=== PATIENT | male | born 1980 | race Two or more races ===

== ENCOUNTER 2023-03-25 19:45 | Emergency (ER) | payer OTHER, SELFPAY ==
--- NOTE | ~2023-03-25 | XR_ITS ---
EXAMINATION: XR CHEST CLINICAL INFORMATION: Hypertension COMPARISON: None available. TECHNIQUE: 2 views of the chest were obtained. FINDINGS: The cardiac and mediastinal contours are normal. The lungs are clear. No pleural effusion or pneumothorax. Bony structures are unremarkable. There are multiple small 2 mm radiopaque soft tissue foreign bodies projecting over the right chest and one projecting over the left chest. XR/XR chest 2V IMPRESSION: Multiple radiopaque foreign bodies over the chest, right greater than left. Otherwise unremarkable exam.
[2023-03-25 19:51] VITALS: BP 168/102; PULSE 98; RESP 18; TEMP 36.6; O2SAT 99; BMI 33.9
--- NOTE | 2023-03-25 19:51 | ED.GENADULT ---
HPI - General Adult General Chief complaint: Upper Respiratory Symptoms Stated complaint: High blood pressure Time Seen by Provider: 03/26/23 00:46 Source: patient Mode of arrival: ambulatory Limitations: no limitations History of Present Illness HPI narrative: Patient with no known significant past medical history has some cold symptoms for last 1 week and dry cough noticed to have high blood pressure on arrival patient has not seen PCP for long time has strong family history of hypertension on arrival patient's blood pressure was 168/102 has not taken any Sudafed or has any coffee prior to arrival no chest pain or shortness of breath Related Data Previous Rx's Medication Instructions Recorded lisinopril 20 1 tab PO DAILY #90 tabs 03/26/23 mg-hydrochlorothiazide 12.5 mg tablet Allergies Allergy/AdvReac Type Severity Reaction Status Date / Time No Known Allergies Allergy Verified 03/25/23 19:53 Review of Systems Review of Systems: Yes all other systems are reviewed and are negative Physical Exam ED Vital Signs: Vital Signs - 24 hr 03/25/23 19:51 03/26/23 01:08 03/26/23 02:52 Temperature 97.8 F 98.1 F 97.8 F Pulse Rate 98 81 84 Respiratory Rate 18 16 16 Blood Pressure 168/102 H 155/91 H 159/88 H Pulse Oximetry 99 98 96 Oxygen Delivery Method Room Air Room Air Room Air BMI result Body Mass Index 33.9 Appearance: Alert. Oriented X3. No acute distress. Obese Eyes: PERRLA, No Nystagmus ENT: Pharynx normal. Oral Mucosa moist Neck: Normal inspection. Neck supple. CVS: Normal heart rate and rhythm. Pulses normal. Respiratory: No respiratory distress. Equal air entry bilateral, no wheezing/rales/rhonchi Abdomen: Soft and nontender. Bowel sounds are present, no mass palpable, no CVA tenderness Skin: Skin warm and dry. Normal skin color. Normal skin turgor. Extremities: No lower extremity edema. No calf tenderness Neuro: Oriented X 3. No motor deficit. No sensory deficit.No cerebellar signs , cranial nerves II-XII intact Course Course Course Narrative: This is a rapid medical exam. Defer additional HPI, ROS, PE to primary provider. 42 yo male with no known medical history here with complaints of high blood pressure noted at . C/o intermittent headache, chest pain. Also complaining of some intermittent fevers, chills, sinus pressure and pain BP 168/102 in triage Medications Administered Discontinued Medications Generic Name Dose Route Start Last Admin Trade Name Jose M PRN Reason Stop Dose Admin Lisinopril 20 mg 03/26/23 01:10 03/26/23 01:37 Lisinopril 20 Mg Tablet PO 03/26/23 01:11 20 mg ONCE ONE Administration Protocol Medical Decision Making Medical Decision Making [facility] Narrative: Patient with hypertension with poor follow-up as outpatient discharge patient home on lisinopril hydrochlorothiazide for hypertension labs are stable advised to follow with PCP Lab Data [facility] Lab Attestation statement: I reviewed the patient's lab results. 03/25/23 21:06 03/25/23 21:06 Labs: Lab Results 03/25/23 03/25/23 03/25/23 Range/Units 21:03 21:06 21:06 WBC 11.4 H (4.8-10.8) X10*3/uL RBC 4.74 (4.60-5.80) X10*6/uL Hgb 14.0 (14.0-18.0) g/dl Hct 41.5 L (42.0-52.0) % MCV 87.6 (80.0-98.0) fL MCH 29.5 (27.0-33.0) pg MCHC 33.7 (31.0-36.0) g/dl RDW 13.0 (11.0-16.0) % Plt Count 293 (160-400) X10*3/uL MPV 8.6 L (9.4-12.4) fL Immature Gran % (Auto) 0.7 H (0.0-0.4) % Neut % (Auto) 57.5 (45-73) % Lymph % (Auto) 30.8 (20-40) % Carver % (Auto) 5.3 (2-11) % Eos % (Auto) 5.4 H (0-4) % Baso % (Auto) 0.3 (0-2) % Lymph # (Auto) 3.5 (1.2-4.9) X10*3/uL Carver # (Auto) 0.6 (0.1-1.2) X10*3/uL Eos # (Auto) 0.6 H (0.0-0.4) X10*3/uL Baso # (Auto) 0.0 (0.0-0.2) X10*3/uL Abs Immat Gran (auto) 0.08 H (0.00-0.03) X10*3/uL Absolute Neuts (auto) 6.6 (2.0-8.3) x10*3/uL Absolute Nucleated RBC 0.000 (0.0-0.012) X10*3/uL Nucleated RBC % (auto) 0.0 (0.0-0.2) /100WBC Sodium 138 (135-145) mmol/L Potassium 3.7 (3.3-5.1) mmol/L Chloride 103 (96-108) mmol/L Carbon Dioxide 23 (22-29) mmol/L Anion Gap 16 (12-20) BUN 12 (9-16) mg/dL Creatinine 1.15 (0.5-1.4) mg/dL Estim Creat Clear Calc 106.5 Estimated GFR > 60 Random Glucose 196 H (60-115) mg/dL Calcium 9.1 (8.4-10.2) mg/dL Total Bilirubin 0.8 (0.0-1.0) mg/dL Direct Bilirubin 0.2 (0.0-0.5) mg/dL AST 21 (5-37) U/L ALT 23 (0-40) U/L Alkaline Phosphatase 77 (39-117) U/L Troponin I High Sens (<3.5-35.0) ng/L Total Protein 7.5 (6.5-8.0) g/dL Albumin 4.3 (3.5-5.0) g/dL Influenza Type A (PCR) NEGATIVE (Negative) Influenza Type B (PCR) NEGATIVE (Negative) RSV RNA Qual (PCR) NEGATIVE (Negative) SARS-CoV-2 RNA (RT-PCR) NEGATIVE (Negative) 03/25/23 Range/Units 21:06 WBC (4.8-10.8) X10*3/uL RBC (4.60-5.80) X10*6/uL Hgb (14.0-18.0) g/dl Hct (42.0-52.0) % MCV (80.0-98.0) fL MCH (27.0-33.0) pg MCHC (31.0-36.0) g/dl RDW (11.0-16.0) % Plt Count (160-400) X10*3/uL MPV (9.4-12.4) fL Immature Gran % (Auto) (0.0-0.4) % Neut % (Auto) (45-73) % Lymph % (Auto) (20-40) % Carver % (Auto) (2-11) % Eos % (Auto) (0-4) % Baso % (Auto) (0-2) % Lymph # (Auto) (1.2-4.9) X10*3/uL Carver # (Auto) (0.1-1.2) X10*3/uL Eos # (Auto) (0.0-0.4) X10*3/uL Baso # (Auto) (0.0-0.2) X10*3/uL Abs Immat Gran (auto) (0.00-0.03) X10*3/uL Absolute Neuts (auto) (2.0-8.3) x10*3/uL Absolute Nucleated RBC (0.0-0.012) X10*3/uL Nucleated RBC % (auto) (0.0-0.2) /100WBC Sodium (135-145) mmol/L Potassium (3.3-5.1) mmol/L Chloride (96-108) mmol/L Carbon Dioxide (22-29) mmol/L Anion Gap (12-20) BUN (9-16) mg/dL Creatinine (0.5-1.4) mg/dL Estim Creat Clear Calc Estimated GFR Random Glucose (60-115) mg/dL Calcium (8.4-10.2) mg/dL Total Bilirubin (0.0-1.0) mg/dL Direct Bilirubin (0.0-0.5) mg/dL AST (5-37) U/L ALT (0-40) U/L Alkaline Phosphatase (39-117) U/L Troponin I High Sens 2.8 (<3.5-35.0) ng/L Total Protein (6.5-8.0) g/dL Albumin (3.5-5.0) g/dL Influenza Type A (PCR) (Negative) Influenza Type B (PCR) (Negative) RSV RNA Qual (PCR) (Negative) SARS-CoV-2 RNA (RT-PCR) (Negative) Discharge Plan Discharge Clinical Impression: Hypertension Patient Disposition: Home, Self-Care Instructions: Chronic Hypertension (ED) Additional Instructions: Check blood pressure daily should will less than 135/85 Decrease salt intake Take medication for blood pressure as prescribed Follow with PCP Prescriptions: New lisinopril-hydrochlorothiazide 20-12.5 mg tablet 1 tab PO DAILY Qty: 90 2RF Stand Alone Forms: Work/School Release Interventions: ED Discharge Assessment Last Done: 03/26/23 03:06 Discharge Date/Time: 03/26/23 03:07
--- NOTE | 2023-03-25 19:54 | ECG_ITS ---
Test Reason : high bp Blood Pressure : / mmHG Vent. Rate : 087 BPM Atrial Rate : 087 BPM P-R Int : 176 ms QRS Dur : 092 ms QT Int : 398 ms P-R-T Axes : 038 009 042 degrees QTc Int : 478 ms Normal sinus rhythm Nonspecific T wave abnormality Prolonged QT Abnormal ECG No previous ECGs available Referred By: Maria E Aden Electronically Signed By:Kishor Cruz
[2023-03-25 21:11] LABS: MANUAL DIFF FLAG NO
[2023-03-25 21:13] LABS: Basophils Percent Auto 0.3 % (0-2); Eosinophils Absolute Auto 0.6 X10*3/uL (0.0-0.4); Eosinophils Percent Auto 5.4 % (0-4); Hematocrit 41.5 % (42.0-52.0); Imm Gran Abs Auto 0.08 X10*3/uL (0.00-0.03); Imm Gran Pct Auto 0.7 % (0.0-0.4); Lymphocytes Absolute Auto 3.5 X10*3/uL (1.2-4.9); Lymphocytes Percent Auto 30.8 % (20-40); Mean Corpuscular HGB Conc 33.7 g/dl (31.0-36.0); Mean Corpuscular Hemoglobin 29.5 pg (27.0-33.0); Mean Corpuscular Volume 87.6 fL (80.0-98.0); Mean Platelet Volume 8.6 fL (9.4-12.4); Monocytes Absolute Auto 0.6 X10*3/uL (0.1-1.2); Monocytes Percent Auto 5.3 % (2-11); Neutrophils Absolute Auto 6.6 x10*3/uL (2.0-8.3); Neutrophils Percent Auto 57.5 % (45-73); Platelet Count 293 X10*3/uL (160-400); Red Blood Count 4.74 X10*6/uL (4.60-5.80); White Blood Count 11.4 X10*3/uL (4.8-10.8)
[2023-03-25 21:27] LABS: Alanine Aminotransferase 23 U/L (0-40); Albumin Level 4.3 g/dL (3.5-5.0); Alkaline Phosphatase 77 U/L (39-117); Anion Gap 16 (12-20); Aspartate Amino Transferase 21 U/L (5-37); Bilirubin Direct 0.2 mg/dL (0.0-0.5); Bilirubin Total 0.8 mg/dL (0.0-1.0); Blood Urea Nitrogen 12 mg/dL (9-16); Calcium 9.1 mg/dL (8.4-10.2); Carbon Dioxide 23 mmol/L (22-29); Chloride 103 mmol/L (96-108); Creatinine Clr Calc Pharmacy 106.5; Estimated Glomerular Filt Rate > 60; Glucose Random 196 mg/dL (60-115); Potassium 3.7 mmol/L (3.3-5.1); Sodium 138 mmol/L (135-145); Total Protein 7.5 g/dL (6.5-8.0)
[2023-03-25 21:34] LABS: Troponin-I High Sensitivity 2.8 ng/L (<3.5-35.0)
[2023-03-25 21:55] LABS: Influenza A PCR NEGATIVE (Negative); Influenza B PCR NEGATIVE (Negative); Resp Syncy Virus RNA Qual PCR NEGATIVE (Negative); SARS COV2 PCR INHOUSE NEGATIVE (Negative)
[2023-03-26 01:08] VITALS: BP 155/91; PULSE 81; RESP 16; TEMP 36.7; O2SAT 98
[2023-03-26] MEDS: lisinopriL 20 MG TABLET PO (01:37)
[2023-03-26 02:52] VITALS: BP 159/88; PULSE 84; RESP 16; TEMP 36.6; O2SAT 96
== END 2023-03-26 03:07 | disposition home or self-care (01) ==
PROVIDERS: Nurse Practitioner Family; Emergency Provider Internal Medicine
DX: I10 Essential (primary) hypertension (principal); R94.31 Abnormal electrocardiogram [ECG] [EKG]; Z20.822 Contact with and (suspected) exposure to COVID-19; Z20.828 Contact with and (suspected) exposure to other viral communicable diseases; Z79.899 Other long term (current) drug therapy
CPT/HCPCS: 0241U; 36415; 71046; 80048; 80076; 84484; 85025; 93005; 99283; 99284

== ENCOUNTER 2023-07-17 07:40 | Outpatient (AMB) | payer OTHER, SELFPAY ==
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
[2023-07-17 07:43] VITALS: BP 170/118; BMI 42.3
[2023-07-17 09:10] VITALS: BP 170/110
== END 2023-07-17 08:10 | disposition home or self-care (01) ==
PROVIDERS: Visit Provider Internal Medicine
DX: I10 Essential (primary) hypertension (principal); E66.01 Morbid (severe) obesity due to excess calories; M25.562 Pain in left knee; Z68.41 Body mass index [BMI] 40.0-44.9, adult; R73.09 Other abnormal glucose; J32.9 Chronic sinusitis, unspecified; M25.561 Pain in right knee; D72.829 Elevated white blood cell count, unspecified
CPT/HCPCS: 99204

== ENCOUNTER 2023-07-17 08:28 | Outpatient (REF) | payer OTHER, SELFPAY ==
[2023-07-17 09:02] LABS: MANUAL DIFF FLAG NO
[2023-07-17 09:36] LABS: Basophils Percent Auto 0.1 % (0-2); Eosinophils Absolute Auto 0.5 X10*3/uL (0.0-0.4); Eosinophils Percent Auto 6.4 % (0-4); Hematocrit 41.2 % (42.0-52.0); Hemoglobin 13.4 g/dl (14.0-18.0); Imm Gran Abs Auto 0.03 X10*3/uL (0.00-0.03); Imm Gran Pct Auto 0.4 % (0.0-0.4); Lymphocytes Absolute Auto 3.3 X10*3/uL (1.2-4.9); Lymphocytes Percent Auto 39.1 % (20-40); Mean Corpuscular HGB Conc 32.5 g/dl (31.0-36.0); Mean Corpuscular Hemoglobin 29.4 pg (27.0-33.0); Mean Corpuscular Volume 90.4 fL (80.0-98.0); Monocytes Absolute Auto 0.6 X10*3/uL (0.1-1.2); Monocytes Percent Auto 6.7 % (2-11); Neutrophils Percent Auto 47.3 % (45-73); Platelet Count 360 X10*3/uL (160-400); Red Blood Count 4.56 X10*6/uL (4.60-5.80); White Blood Count 8.4 X10*3/uL (4.8-10.8)
[2023-07-17 10:25] LABS: Alanine Aminotransferase 21 U/L (0-40); Albumin Level 4.2 g/dL (3.5-5.0); Alkaline Phosphatase 79 U/L (39-117); Anion Gap 12 (12-20); Aspartate Amino Transferase 20 U/L (5-37); Bilirubin Total 0.6 mg/dL (0.0-1.0); Blood Urea Nitrogen 7 mg/dL (9-16); Calcium 9.1 mg/dL (8.4-10.2); Carbon Dioxide 25 mmol/L (22-29); Chloride 105 mmol/L (96-108); Cholesterol 129 mg/dL (<200); Estimated Glomerular Filt Rate > 60; Glucose Fasting 118 mg/dL (60-99); HDL Cholesterol 40 mg/dL (>40); LDL Cholesterol Calculated 71 mg/dL (<100); Potassium 3.8 mmol/L (3.3-5.1); Sodium 138 mmol/L (135-145); Total Protein 7.4 g/dL (6.5-8.0); Triglycerides 93 mg/dL (<150)
[2023-07-17 10:44] LABS: Thyroid Stimulating Hormone 1.92 uIU/mL (0.32-4.0)
== END 2023-07-17 08:29 | disposition home or self-care (01) ==
LOC: HO.LAB 08:28
PROVIDERS: PCP Internal Medicine; Visit Provider Internal Medicine
DX: D64.9 Anemia, unspecified (principal); D72.829 Elevated white blood cell count, unspecified; R73.09 Other abnormal glucose; E66.01 Morbid (severe) obesity due to excess calories; E78.5 Hyperlipidemia, unspecified; I10 Essential (primary) hypertension
CPT/HCPCS: 36415; 80053; 80061; 84443; 85025

== ENCOUNTER 2023-08-07 13:38 | Outpatient (AMB) | payer OTHER, SELFPAY ==
[2023-08-07 13:40] VITALS: BP 152/108; BMI 42.5
--- NOTE | 2023-08-07 13:40 | MHC.PC.OV ---
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 Accompanied by: Self / Same As Patient Allergies No Known Allergies Allergy (Verified 08/07/23 13:51) Medication List - Last Reconciled 08/07/23 by Mona English MD fluticasone propionate 50 mcg/actuation (Children's Flonase Allergy Relief) 1 spray intranasal DAILY 30 days losartan 25 mg PO DAILY 90 days omeprazole 20 mg PO DAILY PRN 90 days Tobacco use date assessed: 07/17/23 HPI HPI Comments History of Present Illness Details This is a 42-year-old male with hypertension, morbid obesity, impaired glucose tolerance and chronic GERD that comes today complaining of bilateral knee pain, bilateral hand pain and bilateral ankle pain as a result of a work injury. He said the pain is aggravated by activity working and he would like to be out of work up until he recovers about 6 weeks. He will start physical therapy soon. Blood pressure elevated today because he did not took his medication. Blood pressure will be recheck in 3 weeks by nurse navigator. He is morbidly obese with a BMI of 42.5 and was advised to diet and exercise to reach BMI goal less than 30. Has fasting blood glucose elevated but denies any polyuria or polydipsia. GERD stable with medications. [facility] Surgical History History of surgery Family History Mother Glaucoma Gout Father Diabetes Social History Housing: Apartment Alcohol intake: current Alcohol intake frequency: a few times a month Alcohol type: beer and hard liquor Patient Tobacco Use Status: Current someday Tobacco user Tobacco use type: Cigar e-Cigarette/Vaping Use: Never Used Second Hand Smoke Exposure: No service: No Current occupational status: employed Current occupational exposures/hazards: No Cognitive needs: No Hearing needs: No Vision needs: No Questionnaire Thrive Questionnaire Date Thrive assessed: 07/17/23 VALERIE-7 AMB Questionnaire VALERIE-7 Date VALERIE - 7 assessed: 07/17/23 Source: Developed by Drs. Gregorio Barrett, Viviana Montejo, Mohit Sharpe and colleagues, with an educational shira from [employer]. Review of Systems Const All systems reviewed & are unremarkable except as noted in HPI and below Eyes Reports no additional complaints, Denies change in vision and Denies other visual disturbances Card Denies chest pain at rest, Denies chest pain with activity, Denies edema, Denies irregular heart rhythm, Denies claudication, Denies dyspnea, Denies dyspnea on exertion, Denies orthopnea, Denies paroxysmal nocturnal dyspnea and Denies slow heart rate Resp Denies cough, Denies dyspnea and Denies dyspnea on exertion GI Denies abdominal pain, Denies change in bowel habits, Denies excessive flatus, Denies nausea and Denies vomiting Denies urinary hesitancy, Denies urinary incontinence and Denies urinary urgency Musc Denies abnormal gait, Denies atrophy, Denies deformity, Reports arthralgias and Denies limited range of motion Skin/Breast Denies bleeding lesions, Denies changing lesions and Denies rash Neuro Denies abnormal gait and Denies lack of coordination Physical exam (Primary Care) Vital Signs: Last Vital Signs BP 152/108 H 08/07/23 13:40 BMI result Body Mass Index 42.5 Tobacco/Smoking Status: Tobacco use Status Tobacco use date assessed 07/17/23 08/07/23 13:45 Patient Tobacco Use Status Current someday Tobacco 08/07/23 13:45 Tobacco use type Cigar 08/07/23 13:45 e-Cigarette/Vaping Use Never Used 08/07/23 13:45 Thrive Assessment: Date of Thrive Assessment Date Thrive assessed 07/17/23 08/07/23 13:45 Neck Neck: Yes normal visual inspection and Yes supple Resp Effort & Inspection: normal respiratory effort Auscultation: clear to auscultation bilaterally Cardio Jugular venous distension: no JVD Rate: regular rate Rhythm: regular rhythm Heart sounds: S1 normal heart sound present and S2 normal heart sound present Extrem General: Yes full ROM Assessment and Plan Assessment & Plan (1) Morbid obesity: Code(s): E66.01 - Morbid (severe) obesity due to excess calories Plan: Start diet and exercise. BMI goal is less than 30. (2) Essential hypertension: Code(s): I10 - Essential (primary) hypertension Plan: Continue losartan. Blood pressure goal is equal or less than 130/80. Recheck blood pressure with nurse navigator in 3 weeks. (3) Right knee pain: Code(s): M25.561 - Pain in right knee Plan: Start physical therapy. (4) Left knee pain: Code(s): M25.562 - Pain in left knee Plan: Start physical therapy. (5) Impaired glucose tolerance: Code(s): R73.02 - Impaired glucose tolerance (oral) Plan: Start low-carbohydrate diet. (6) Chronic GERD: Code(s): K21.9 - Gastro-esophageal reflux disease without esophagitis Plan: Continue PPIs as needed Coding Level of Care Code Est Pt Level 4 (33816) Diagnoses Morbid obesity E66.01 Essential hypertension I10 Right knee pain M25.561 Left knee pain M25.562 Impaired glucose tolerance R73.02 Chronic GERD K21.9 Time Spent (min) 23
[2023-08-07 14:45] VITALS: BP 150/100
== END 2023-08-07 14:05 | disposition home or self-care (01) ==
PROVIDERS: PCP Internal Medicine; Visit Provider Internal Medicine
DX: I10 Essential (primary) hypertension (principal); M25.561 Pain in right knee; E66.01 Morbid (severe) obesity due to excess calories; Z68.41 Body mass index [BMI] 40.0-44.9, adult; M25.562 Pain in left knee; R73.02 Impaired glucose tolerance (oral); K21.9 Gastro-esophageal reflux disease without esophagitis
CPT/HCPCS: 99214

== ENCOUNTER 2023-10-17 10:10 | Outpatient (REF) | payer OTHER, SELFPAY ==
--- NOTE | ~2023-10-17 | XR_ITS ---
EXAMINATION: XR FOOT, RIGHT XR FOOT, LEFT XR KNEE, RIGHT XR KNEE, LEFT CLINICAL INFORMATION: Civilian activity done for income or pay. COMPARISON: None available. TECHNIQUE: 3 views obtained of each foot. 3 views obtained of each knee. FINDINGS: RIGHT KNEE: Tiny posterior patellar and lateral marginal osteophytes. Narrowing of the patellofemoral space. Trace joint effusion. LEFT KNEE: Moderate medial joint space narrowing. Narrowing of the patellofemoral joint. Trace joint effusion. Tiny tricompartmental osteophytes. RIGHT FOOT: Tiny plantar and dorsal calcaneal spurs. Fixation hardware incompletely imaged in the distal fibula with surgical button along the distal tibia. Ossicle adjacent to the medial malleolus. Dedicated views of the ankle recommended for further evaluation. Moderate degenerative changes in the first metatarsophalangeal joint with joint space narrowing, hypertrophic change. Moderate degenerative changes in the first tarsometatarsal joint. LEFT FOOT: Small plantar calcaneal spur. Moderate degenerative changes in the first metatarsal. Moderate degenerative changes in the first metatarsophalangeal joint with joint space narrowing, hypertrophic change. Moderate degenerative changes in the first tarsometatarsal joint. XR/XR foot LT min 3V IMPRESSION: 1. Ovro-xs-wudpnacz degenerative changes in the bilateral knees. 2. Moderate degenerative changes in the bilateral first metatarsophalangeal joints.
--- NOTE | ~2023-10-17 | XR_ITS ---
EXAMINATION: XR FOOT, RIGHT XR FOOT, LEFT XR KNEE, RIGHT XR KNEE, LEFT CLINICAL INFORMATION: Civilian activity done for income or pay. COMPARISON: None available. TECHNIQUE: 3 views obtained of each foot. 3 views obtained of each knee. FINDINGS: RIGHT KNEE: Tiny posterior patellar and lateral marginal osteophytes. Narrowing of the patellofemoral space. Trace joint effusion. LEFT KNEE: Moderate medial joint space narrowing. Narrowing of the patellofemoral joint. Trace joint effusion. Tiny tricompartmental osteophytes. RIGHT FOOT: Tiny plantar and dorsal calcaneal spurs. Fixation hardware incompletely imaged in the distal fibula with surgical button along the distal tibia. Ossicle adjacent to the medial malleolus. Dedicated views of the ankle recommended for further evaluation. Moderate degenerative changes in the first metatarsophalangeal joint with joint space narrowing, hypertrophic change. Moderate degenerative changes in the first tarsometatarsal joint. LEFT FOOT: Small plantar calcaneal spur. Moderate degenerative changes in the first metatarsal. Moderate degenerative changes in the first metatarsophalangeal joint with joint space narrowing, hypertrophic change. Moderate degenerative changes in the first tarsometatarsal joint. XR/XR foot RT min 3V IMPRESSION: 1. Vffj-pc-nwrinnzl degenerative changes in the bilateral knees. 2. Moderate degenerative changes in the bilateral first metatarsophalangeal joints.
--- NOTE | ~2023-10-17 | XR_ITS ---
EXAMINATION: XR FOOT, RIGHT XR FOOT, LEFT XR KNEE, RIGHT XR KNEE, LEFT CLINICAL INFORMATION: Civilian activity done for income or pay. COMPARISON: None available. TECHNIQUE: 3 views obtained of each foot. 3 views obtained of each knee. FINDINGS: RIGHT KNEE: Tiny posterior patellar and lateral marginal osteophytes. Narrowing of the patellofemoral space. Trace joint effusion. LEFT KNEE: Moderate medial joint space narrowing. Narrowing of the patellofemoral joint. Trace joint effusion. Tiny tricompartmental osteophytes. RIGHT FOOT: Tiny plantar and dorsal calcaneal spurs. Fixation hardware incompletely imaged in the distal fibula with surgical button along the distal tibia. Ossicle adjacent to the medial malleolus. Dedicated views of the ankle recommended for further evaluation. Moderate degenerative changes in the first metatarsophalangeal joint with joint space narrowing, hypertrophic change. Moderate degenerative changes in the first tarsometatarsal joint. LEFT FOOT: Small plantar calcaneal spur. Moderate degenerative changes in the first metatarsal. Moderate degenerative changes in the first metatarsophalangeal joint with joint space narrowing, hypertrophic change. Moderate degenerative changes in the first tarsometatarsal joint. XR/XR knee LT 3V IMPRESSION: 1. Wsqs-ni-rkwrbnta degenerative changes in the bilateral knees. 2. Moderate degenerative changes in the bilateral first metatarsophalangeal joints.
--- NOTE | ~2023-10-17 | XR_ITS ---
EXAMINATION: XR FOOT, RIGHT XR FOOT, LEFT XR KNEE, RIGHT XR KNEE, LEFT CLINICAL INFORMATION: Civilian activity done for income or pay. COMPARISON: None available. TECHNIQUE: 3 views obtained of each foot. 3 views obtained of each knee. FINDINGS: RIGHT KNEE: Tiny posterior patellar and lateral marginal osteophytes. Narrowing of the patellofemoral space. Trace joint effusion. LEFT KNEE: Moderate medial joint space narrowing. Narrowing of the patellofemoral joint. Trace joint effusion. Tiny tricompartmental osteophytes. RIGHT FOOT: Tiny plantar and dorsal calcaneal spurs. Fixation hardware incompletely imaged in the distal fibula with surgical button along the distal tibia. Ossicle adjacent to the medial malleolus. Dedicated views of the ankle recommended for further evaluation. Moderate degenerative changes in the first metatarsophalangeal joint with joint space narrowing, hypertrophic change. Moderate degenerative changes in the first tarsometatarsal joint. LEFT FOOT: Small plantar calcaneal spur. Moderate degenerative changes in the first metatarsal. Moderate degenerative changes in the first metatarsophalangeal joint with joint space narrowing, hypertrophic change. Moderate degenerative changes in the first tarsometatarsal joint. XR/XR knee RT 3V IMPRESSION: 1. Pzgm-vj-tostanxw degenerative changes in the bilateral knees. 2. Moderate degenerative changes in the bilateral first metatarsophalangeal joints.
== END 2023-10-17 10:11 | disposition home or self-care (01) ==
LOC: HO.XRAY 10:10
PROVIDERS: PCP Internal Medicine; Referring Provider Internal Medicine; Visit Provider Nurse Practitioner Family
DX: M25.571 Pain in right ankle and joints of right foot (principal); M25.572 Pain in left ankle and joints of left foot; M25.561 Pain in right knee; M25.562 Pain in left knee
CPT/HCPCS: 73562; 73630

== ENCOUNTER 2023-10-17 10:10 | Outpatient (AMB) | payer OTHER, SELFPAY ==
--- NOTE | 2023-10-17 10:12 | A.OFFVIS_ITS ---
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 Patient reports his work-related injury was initially evaluated by physician on work site who recommended patient to go see his PCP or to be sent home due to swelling inside his knees and ankles. Patient states he was asked by his fixer supervisor to complete his work day which was Saturday and then go home. Patient reports his Workers Comp insurance denied covering his care. [facility], x-rays were taken and placed on modified duty. He is currently in Physical therapy with no significant improvement in his pain or function. Patient presents with localized tenderness in anterior knee aspects of both knees and bilateral ankle swelling. He was referred to [facility] Orthopedics by [facility] provider but has not been scheduled to see provider yet. Patient requests referral to [facility] Orthopedic referral. Pain increases with movements, walking, bending, climbing or descending stairs or kneeling. Pain is intermittent and affects his daily activities, movements, functioning and sleep. Denies any fever, chills, weight loss, weakness, clicking or catching of knee, gait imbalance, bladder or bowel dysfunction or saddle anesthesia. Location Bilateral knees and ankles, pain and swelling Duration Pain started on 07/26/23, work related injury Characteristics of symptom or complaint Aching, throbbing, stabbing, tight, sore, shooting, numbness, tingling Aggravating or associated factors Walking, climbing or descending stairs, movements, bending, kneeling Relieving factors Tried Tylenol, ibuprofen, ice therapy, elevation-no relief Treatment PT- currently in, minimal improvements [facility] Surgical History History of surgery Family History Mother Glaucoma Gout Father Diabetes Social History Housing: Apartment Alcohol intake: current Alcohol intake frequency: a few times a month Alcohol type: beer and hard liquor Patient Tobacco Use Status: Current someday Tobacco user Tobacco use type: Cigar e-Cigarette/Vaping Use: Never Used Second Hand Smoke Exposure: No service: No Current occupational status: employed Current occupational exposures/hazards: No Cognitive needs: No Hearing needs: No Vision needs: No Review of Systems Const All systems reviewed & are unremarkable except as noted in HPI and below Physical Exam Vital Signs: Last Vital Signs Pulse 69 10/17/23 10:20 BP 152/70 H 10/17/23 10:20 Pulse Ox 96 10/17/23 10:20 Oxygen Delivery Method Room Air 10/17/23 10:20 BMI result Body Mass Index 45.0 General: Appears afebrile. Alert and oriented. Mood and affect appropriate. Follows and participates in conversation appropriately. Respiratory effort is unlabored. No cough. Able to transition from sit to stand unassisted. Ambulates with bilaterally normal heel strike and toe off. Extrem General: Yes capillary refill normal, Yes no calf tenderness and Yes edema (Bilateral ankle edema) Right lower extremity: knee (Limited ROM due to pain) Details: normal to inspection, tenderness (Anterior aspect, global knee pain), swelling Location: of the patella and crepitus; no ecchymosis, no deformity and no unusual warmth and ankle Details: normal to inspection, tenderness Location: posteriorly and anteriorly, swelling Details: diffusely and normal ROM; no unusual warmth, no ecchymosis and no crepitus Left lower extremity: knee (Limited ROM due to pain) Details: normal to inspection, tenderness (Anterior aspect), swelling Location: of the patella, of the pre-patellar area and of the infrapatellar area and crepitus; no ecchymosis, no deformity and no unusual warmth and ankle Details: normal to inspection, tenderness Location: posteriorly and anteriorly, swelling Details: diffusely and crepitus; no warmth and no ecchymosis Results Reviewed Results Reviewed: Assessment & Plan Assessment & Plan (1) Work related injury: Code(s): Y99.0 - Civilian activity done for income or pay (2) Bilateral ankle pain: Code(s): M25.571 - Pain in right ankle and joints of right foot; M25.572 - Pain in left ankle and joints of left foot (3) Right knee pain: Code(s): M25.561 - Pain in right knee (4) Left knee pain: Code(s): M25.562 - Pain in left knee Plan 1. Recommend to continue Physical therapy and home exercise program. 2. Will send for knee and ankle xrays for continued pain and swelling, especially in both ankles. 3. Orthopedic referral for evaluation of ankle pain with significant swelling as well as knee pain prior we will consider interventional treatments. All questions and concerns have been answered and patient agreed with the plan. Follow up for xray results and sooner as needed. Orders: Orders 2 XR foot LT min 3V 10/17/23 M25.561 - Pain in right knee, M25.562 - Pain in left knee, M25.571 - Pain in right ankle and joints of right foot, M25.572 - Pain in left ankle and joints of left foot, Y99.0 - Civilian activity done for income or pay XR knee RT 3V 10/17/23 M25.561 - Pain in right knee, M25.562 - Pain in left knee, M25.571 - Pain in right ankle and joints of right foot, M25.572 - Pain in left ankle and joints of left foot, Y99.0 - Civilian activity done for income or pay XR foot RT min 3V 10/17/23 M25.561 - Pain in right knee, M25.562 - Pain in left knee, M25.571 - Pain in right ankle and joints of right foot, M25.572 - Pain in left ankle and joints of left foot, Y99.0 - Civilian activity done for income or pay XR knee LT 3V 10/17/23 M25.561 - Pain in right knee, M25.562 - Pain in left knee, M25.571 - Pain in right ankle and joints of right foot, M25.572 - Pain in left ankle and joints of left foot, Y99.0 - Civilian activity done for income or pay Referrals 2 Orthopedics Referral M25.561 - Pain in right knee, M25.562 - Pain in left knee, M25.571 - Pain in right ankle and joints of right foot, M25.572 - Pain in left ankle and joints of left foot, Y99.0 - Civilian activity done for income or pay Coding Level of Care Code New Pt Level 4 (90805) Diagnoses Work related injury Y99.0 Bilateral ankle pain M25.571; M25.572 Right knee pain M25.561 Left knee pain M25.562
[2023-10-17 10:20] VITALS: BP 152/70; PULSE 69; O2SAT 96; BMI 45.0
== END 2023-10-17 10:49 | disposition home or self-care (01) ==
PROVIDERS: PCP Internal Medicine; Referring Provider Internal Medicine; Visit Provider Nurse Practitioner Family
DX: M25.571 Pain in right ankle and joints of right foot (principal); M25.572 Pain in left ankle and joints of left foot; M25.561 Pain in right knee; M25.562 Pain in left knee
CPT/HCPCS: 99204

== ENCOUNTER 2023-11-15 10:00 | Outpatient (RCR) | payer OTHER, SELFPAY ==
--- NOTE | 2023-09-19 12:26 | MHC.PT.OD ---
[facility] [place] Office [place] Office [place] Office [address] Génesis Charlton [address] [phone] F: [phone] F: [phone] F: [phone] F: [phone] Physical Therapy Daily Note Diagnosis: B knee pain Date of Surgery: Date of Evaluation: 08/30/23 Date of Treatment: 09/13/23 Treatments to Date: 6 Cancellations to Date: No Shows to Date: Authorized Visits: Insurance End Date: Precautions/ Contraindications: Subjective: My back has been hurting me a lot. Sharp pain goes from my back, down to my legs sometimes. Pain Score and Location: 5 B knees, heel cords Objective Flowsheet: Tests & Measures see eval Exercises bike x 10 mins slow pace seat 10 rev DKTC w/ PBall and single LE B 3x10 SAQ's 2 x 5, painful sidelying hip ABD 3x5, b/l -seated hamstring stretch on chair with strap : 3x30 sec -Wedge stretch 3 x 30 B Postural training during sitting and stretching: alignment of LE's during stretch to improve DF and gastroc/soleus flexibility. sit<>stands with LE's more parallel to improve knee joint congruency ktape applied to B/L knees for support, reduce pain Discussed safety and removal precautions with patient, who is in agreement. Modalities Assessment: Pt has met goal for full knee extension b/l and improvement of HEP performance I. However, continues to have DF impairment due to tightness of gastroc/soleus, pain making it difficult to stretch properly, and low back pain impairing ability to complete full bridges. Recommend cont with POC additional 3 weeks to maximize functional mobility, reduce pain, and help patient safely return to PLOF including work demands. PT Plan: Ther ex for improvement of ROM/strength and HEP instruction, modalities and manual tx to reduce pain, therapeutic activities to improve functional mobility Short Term Goals: 1. Pt will be able to move into full knee extension and full ankle DF. 2. In 2 weeks, patient will be able to complete full bridge in hooklying, indicating improved hip strength. 3. In 2 weeks, patient will be I with phase 1 HEP Usp Goals: 1. In 4 weeks, patient will be able to go up and down 8 inch step in order to climb into machine for work without increased pain. 2. In 4 weeks, patient will report reduced pain <=3/10 and improved score on LEFS 10 points indicating improved mobility. 3. In 4 weeks, patient will demonstrate 5/5 MMT B hip/knees all planes to return to PLOF. Electronically signed by: Myrna Perales PT, DPT
--- NOTE | 2024-09-03 12:02 | MHC.PT.DC ---
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 Referred to PT for B knee pain. PT exam reveals reduced knee and ankle ROM, pain limiting his mobility, edema B knees, abnormal gait. Skilled PT indicated to address these impairments, and teach HEP for management of symptoms to help pt return to work and PLOF. Pt participated in 12 sessions, and improved exercise tolerance and functional mobility overall. Pt returned to normal work duties. D/C at this time. Pt recommended to wear shoe inserts for proper foot alignment and to continue HEP. Thank you for this referral. Electronically signed by: Myrna Perales PT, DPT Please sign and return to therapist. Thank you for your referral.
== END 2024-09-03 12:03 | disposition home or self-care (01) ==
LOC: HO.PT 10:00
PROVIDERS: PCP Internal Medicine; Visit Provider Internal Medicine
DX: M25.561 Pain in right knee (principal); M25.562 Pain in left knee
CPT/HCPCS: 97110; 97116; 97140; 97163; 97530

== ENCOUNTER 2023-11-18 12:39 | Outpatient (AMB) | payer OTHER, SELFPAY ==
--- NOTE | 2023-11-18 12:42 | A.OFFVIS_ITS ---
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 Currently he has constant swelling in his left ankle and a throbbing pain on the lateral aspect ankle. States a pulling sensation at the bottom of his foot. He currently attends PT. Hx of right leg surgery about 3-4 years ago at [facility]. 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 He states the pain started after an incident with a pallet bao at work when the pallet bao jolted on 07/26/23. When this occurred, he felt pain in his lower extremities from the kick back of the bao. He states he has constant swelling and throbbing pain on the lateral aspect of his ankles. He also c/of a pulling sensation at the bottom of his feet. He states there is pain deep inside the knee and he also experiences clicking and difficulty with stair use. He is working with physical therapy as instructed. He ordered inserts for his shoes. He states this pain is limiting his ability to perform normal activities . He has a history of right leg surgery about 4 years ago at [facility]. [facility] Surgical History History of surgery Family History Mother Glaucoma Gout Father Diabetes Social History Housing: Apartment Alcohol intake: current Alcohol intake frequency: a few times a month Alcohol type: beer and hard liquor Patient Tobacco Use Status: Current someday Tobacco user Tobacco use type: Cigar e-Cigarette/Vaping Use: Never Used Second Hand Smoke Exposure: No service: No Current occupational status: employed Current occupational exposures/hazards: No Cognitive needs: No Hearing needs: No Vision needs: No Review of Systems Const All systems reviewed & are unremarkable except as noted in HPI and below Physical Exam Vital Signs: BMI result Body Mass Index 45.3 Const General: cooperative, healthy appearing, comfortable, no acute distress, well developed and alert Orientation/consciousness: patient oriented x3 HEENT Head: Yes normal to inspection, Yes normocephalic and Yes atraumatic Eyes General: appearance normal, both eyes and all related structures Resp Effort & Inspection: normal respiratory effort and able to speak in complete sentences Cardio Rate: regular rate Peripheral pulses: Peripheral pulses 2+ throughout GI Palpation (GI): Soft to palpation Skin Lesions: no lesions Rashes: no rashes Neuro General: patient oriented x3 Extrem Other: Bilateral knee: Skin intact, no erythema or joint effusion. Tenderness along the medial and lateral joint line. Full ROM with crepitus. Negative Darryl?s. No ligamentous laxity. NVI. Bilat ankles normal to inspection. He has some tenderness bilaterally along the peroneal tendon. No weakness or instability. He does have bilateral pes planus. Results Reviewed Results Reviewed: xrays of the knee and foot obtained at an outside facility are negative for acute fracture or dislocations. Bilateral patellar are lateralized. Assessment & Plan Assessment & Plan (1) Patellofemoral arthralgia of both knees: Code(s): M22.2X1 - Patellofemoral disorders, right knee; M22.2X2 - Patellofemoral disorders, left knee (2) Bilateral pes planus: Code(s): M21.41 - Flat foot [pes planus] (acquired), right foot; M21.42 - Flat foot [pes planus] (acquired), left foot Plan We discussed options which include PT, NSAIDs and injections. The patient will defer on the injection today and proceed with PT and NSAIDs. I did give him an order for antipronation orthotics. I encouraged him to work with PT to regain his prior level of functioning as I do feel it is reachable. He is not currently out of work. He will f/u if symptoms persist or worsen. Orders: Orders PT Evaluation and Treatment Today M21.41 - Flat foot [pes planus] (acquired), right foot, M21.42 - Flat foot [pes planus] (acquired), left foot, M22.2X1 - Patellofemoral disorders, right knee, M22.2X2 - Patellofemoral disorders, left knee Medications: New [Anti-pronation orthotics] Anti-pronation orthotics 1 ea 0RF pes planus M21.41 - Flat foot [pes planus] (acquired), right foot, M21.42 - Flat foot [pes planus] (acquired), left foot Patient Instructions: Scribed for Lady Ch PA-C, by Hugh Ta, medical field representative, on 11/18/2023 at 1:15 PM EST. ILady PA-C, have personally reviewed and agree with the information entered by the scribe. Coding Level of Care Code New Pt Level 3 (07273) Diagnoses Patellofemoral arthralgia of both knees M22.2X1; M22.2X2 Bilateral pes planus M21.41; M21.42
[2023-11-18 12:46] VITALS: BMI 45.3
== END 2023-11-18 13:58 | disposition home or self-care (01) ==
LOC: HO.HOS 12:39
PROVIDERS: PCP Internal Medicine; Visit Provider Physician Assistant
DX: M22.2X1 Patellofemoral disorders, right knee (principal); M22.2X2 Patellofemoral disorders, left knee; M21.41 Flat foot [pes planus] (acquired), right foot; Z04.2 Encounter for examination and observation following work accident
CPT/HCPCS: 99203

== ENCOUNTER → 2023-11-18 12:39 | Outpatient (BNVA) | payer OTHER, SELFPAY | PROVIDERS: PCP Internal Medicine; Visit Provider Physician Assistant ==

== ENCOUNTER 2023-12-16 17:07 | Outpatient (AMB) | payer OTHER, SELFPAY ==
[2023-12-16 17:16] VITALS: BP 146/98; BMI 44.0
--- NOTE | 2023-12-16 17:16 | A.OFFPC_ITS ---
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 Accompanied by: Self / Same As Patient Allergies No Known Allergies Allergy (Verified 12/16/23 17:26) Medication List - Last Reconciled 12/16/23 by Mona English MD [Anti-pronation orthotics Anti-pronation orthotics] omeprazole 20 mg PO DAILY PRN 90 days Tobacco use date assessed: 12/16/23 Dental Screening Dental Screen Date: 12/16/23 Did you have a dental visit in the last 12 months?: No Did you have a dental problem in the last 6 months where you did not have access to dental care?: No Was dental information given to patient?: Yes HPI HPI Comments History of Present Illness Details This is a 43-year-old male with chronic GERD, morbid obesity and elevated random blood glucose level that comes today for follow-up on his conditions. GERD stable with PPIs as needed. He is morbidly obese and declines weight loss surgery. Patient is doing diet and exercise. He is random blood glucose was elevated but he denies polyuria, polydipsia and unintentional weight loss. Blood pressure was elevated but I repeated and it was within normal limits. No chest pain or shortness of breath. [facility] Surgical History History of surgery Family History Mother Glaucoma Gout Father Diabetes Social History Housing: Apartment Alcohol intake: current Alcohol intake frequency: a few times a month Alcohol type: beer and hard liquor Patient Tobacco Use Status: Former Tobacco user Tobacco use type: Cigar e-Cigarette/Vaping Use: Never Used Second Hand Smoke Exposure: No service: No Current occupational status: employed Current occupational exposures/hazards: No Cognitive needs: No Hearing needs: No Vision needs: No Questionnaire PHQ-9 Over the last 2 weeks, how often have you been bothered by any of the following problems? 1. Little interest or pleasure in doing things: not at all 2. Feeling down, depressed, or hopeless: not at all 3. Trouble falling or staying asleep, or sleeping too much: several days 4. Feeling tired or having little energy: not at all 5. Poor appetite or overeating: not at all 6. Feeling bad about yourself - or that you are a failure or have let yourself or your family down: not at all 7. Trouble concentrating on things, such as reading the newspaper or watching television: not at all 8. Moving or speaking so slowly that other people could have noticed. Or the opposite - being so fidgety or restless that you have been moving around a lot more than usual: not at all 9. Thoughts that you would be better off or of hurting yourself in some way: not at all Total score: 1 Depression Screening Interpretation: Negative Depression Screening Done: Yes 88714 - PHQ-9 Billing: Yes Source: Developed by Drs. Gregorio Barrett, Viviana Montejo, Mohit Sharpe and colleagues, with an educational shira from [employer]. Thrive Questionnaire Date Thrive assessed: 12/16/23 I am a: Patient What is your living situation today?: I have a steady place to live Within the past 12 months, did the food you bought not last and you didn't have the money to get more?: Never true Within the past 12 months, did you worry whether your food would run out before you got money to buy more?: Never true Do you have trouble paying for medicines?: No Do you have trouble getting transportation to medical appointments?: No Do you have trouble paying your heating and electricity bill?: No Do you have trouble taking care of your child, family member or friend?: No Do you have trouble with day-to-day activities such as bathing, preparing meals, shopping, managing finances, etc.?: No Are you currently unemployed and looking for a job?: No Are you interested in more education?: No Please select the resources that you would like help with: None Currently or been in a relationship where the following occur: no concerns reported THRIVE Score: 0 AUDIT C Alcohol Use Questionnaire (AUDIT-C) 1. How often do you have a drink containing alcohol?: Monthly or less 2. How many drinks containing alcohol do you have on a typical day when you are drinking?: 1 or 2 3. How often do you have six or more drinks on one occasion?: Never Total Score: 1 VALERIE-7 AMB Questionnaire VALERIE-7 Date VALERIE - 7 assessed: 12/16/23 Feeling nervous, anxious, or on edge: 1 = Several days Not being able to stop or control worryin = Not at all Worrying too much about different things: 0 = Not at all Trouble relaxin = Not at all Being so restless that it is hard to sit still: 0 = Not at all Becoming easily annoyed or irritable: 1 = Several days Feeling afraid as if something awful might happen: 0 = Not at all Total VALERIE-7 score (0-4 normal; 5-9 mild; 10-14 moderate; 15-21 severe): 2 Source: Developed by Drs. Gregorio Barrett, Viviana Montejo, Mohit Sharpe and colleagues, with an educational shira from [employer]. VALERIE-7 Assessment Billing VALERIE-7 Assessment Tool: VALERIE-7 Assessment 42988 Review of Systems Const All systems reviewed & are unremarkable except as noted in HPI and below Eyes Reports no additional complaints, Denies change in vision and Denies other visual disturbances Card Denies chest pain at rest, Denies chest pain with activity, Denies edema, Denies irregular heart rhythm, Denies claudication, Denies dyspnea, Denies dyspnea on exertion, Denies orthopnea, Denies paroxysmal nocturnal dyspnea and Denies slow heart rate Resp Denies cough, Denies dyspnea and Denies dyspnea on exertion GI Denies abdominal pain, Denies change in bowel habits, Denies excessive flatus, Denies nausea and Denies vomiting Denies urinary hesitancy, Denies urinary incontinence and Denies urinary urgency Musc Denies abnormal gait, Denies atrophy, Denies deformity, Reports arthralgias and Denies limited range of motion Skin/Breast Denies bleeding lesions, Denies changing lesions and Denies rash Neuro Denies abnormal gait and Denies lack of coordination Physical exam (Primary Care) Vital Signs: Last Vital Signs BP 138/90 H 12/16/23 17:37 BMI result Body Mass Index 44.0 Tobacco/Smoking Status: Tobacco use Status Tobacco use date assessed 12/16/23 12/16/23 17:22 Patient Tobacco Use Status Former Tobacco user 12/16/23 17:22 Tobacco use type Cigar 12/16/23 17:22 e-Cigarette/Vaping Use Never Used 12/16/23 17:22 PHQ-9: PHQ-9 Score PHQ-9: Total score 1 12/16/23 17:28 Depression Screening Interpretation: Negative Thrive Assessment: Date of Thrive Assessment Date Thrive assessed 12/16/23 12/16/23 17:22 Currently or been in a relationship where the following occur: no concerns reported Eyes General: appearance normal, both eyes and all related structures Eyelids: Yes eyelids normal Conjunctivae: conjunctivae normal Neck Neck: Yes normal visual inspection and Yes supple Resp Effort & Inspection: normal respiratory effort Auscultation: clear to auscultation bilaterally Cardio Jugular venous distension: no JVD Rate: regular rate Rhythm: regular rhythm Heart sounds: S1 normal heart sound present and S2 normal heart sound present Extrem General: Yes full ROM Assessment and Plan Assessment & Plan (1) Morbid obesity: Code(s): E66.01 - Morbid (severe) obesity due to excess calories Plan: Start diet and exercise. BMI goal is less than 30. (2) Chronic GERD: Code(s): K21.9 - Gastro-esophageal reflux disease without esophagitis Plan: Continue PPIs as needed. (3) Elevated random blood glucose level: Code(s): R73.09 - Other abnormal glucose Plan: Repeat fasting blood glucose. Orders: Orders Lipid Panel Today E78.5 - Hyperlipidemia, unspecified Comprehensive [place]. Panel Fast Today E66.01 - Morbid (severe) obesity due to excess calories Coding Level of Care Code Est Pt Level 3 (05963) Diagnoses Morbid obesity E66.01 Chronic GERD K21.9 Elevated random blood glucose level R73.09 Additional Codes VALERIE-7 Assessment Billing - VALERIE-7 Assessment Tool: VALERIE-7 Assessment 36759 ([id number]) Time Spent (min) 19
[2023-12-16 17:37] VITALS: BP 138/90
== END 2023-12-16 17:36 | disposition home or self-care (01) ==
LOC: HO.HMGH 17:07
PROVIDERS: PCP Internal Medicine; Visit Provider Internal Medicine
DX: K21.9 Gastro-esophageal reflux disease without esophagitis (principal); E66.01 Morbid (severe) obesity due to excess calories; Z68.41 Body mass index [BMI] 40.0-44.9, adult; R73.09 Other abnormal glucose
CPT/HCPCS: 99213

== ENCOUNTER 2024-04-07 09:00 | Outpatient (RCR) | payer OTHER, SELFPAY ==
--- NOTE | 2024-02-18 12:03 | MHC.PT.EP ---
[facility] [place] Office [place] Office [place] Office [address] Génesis Charlton [address] [phone] F: [phone] F: [phone] F: [phone] F: [phone] Physical Therapy Plan of Care Date of Evaluation: 02/03/24 Date of Surgery: Diagnosis: L foot Assessment: Pt is a 43yo male who returns to PT for persistent L foot and ankle pain. PT exam reveals impairments of ankle strength and ROM, poor intrinsic foot activation, abnormal gait pattern. Skilled PT indicated to prescribe exercises to complete daily to improve support of foot and ankle, reduce pain overall to improve functional mobility, and initiate process of obtaining custom AFOs to maximize foot support as indicated. Pt is in agreement with POC and is motivated to participate. Frequency and Duration: The patient will be seen 2x/week, x4 weeks Short Term Goals: 1. Pt will be I with phase 1 ankle stability exercises including arch lift and eccentric post tib ex. 2. Improve B ankle DF/PF to 5/5. 3. B DF and eversion ROM WNL. Fpc Goals: 1. Initiation of contacting MD to get custom AFO script sent to help desk administrator completed. 2. Pt will ambulate with normal toe-out angle and good heel-toe progression with normal step length. 3. LEFS score improvement of 9 points indicating reduced pain and improvement of functional mobility. Treatment Plan: Modalities to reduce pain, spasms and effusion. Manual therapy to restore motion and function. Therapeutic exercise to improve strength and flexibility. Neuromuscular re-education for posture and balance. Therapeutic activities to return to functional activities of daily living. Electronically signed by: Myrna Perales PT, DPT Please sign and return to therapist. Thank you for your referral.
--- NOTE | 2024-09-22 10:37 | MHC.PT.DC ---
[facility] [place] Office [place] Office [place] Office [address] Génesis Charlton [address] [phone] F: [phone] F: [phone] F: [phone] F: [phone] Physical Therapy Discharge Report Diagnosis: L foot Date of Surgery: Date of Evaluation: 02/03/24 Date of Discharge: 04/07/24 Treatments to Date: 7 Cancellations to Date: No Shows to Date: Discharge Status: Achieved Goals Improved Function Independent with HEP Discharge Summary: Pt is a 43yo male who returns to PT for persistent L foot and ankle pain. PT exam reveals impairments of ankle strength and ROM, poor intrinsic foot activation, abnormal gait pattern. Skilled PT indicated to prescribe exercises to complete daily to improve support of foot and ankle, reduce pain overall to improve functional mobility, and initiate process of obtaining custom AFOs to maximize foot support as indicated. Pt is in agreement with POC and is motivated to participate. At time of D/C pain greatly improved to 0/10, he is consistently working out and completing exercises in the pool. Pt is I with HEP, and is in the process of getting an appointment for custom AFOs. D/C at this time, patient in agreement. Thank you for this referral. Electronically signed by: Myrna Perales PT, DPT Please sign and return to therapist. Thank you for your referral.
== END 2024-09-22 10:37 | disposition home or self-care (01) ==
LOC: HO.PT 09:00
PROVIDERS: PCP Internal Medicine; Visit Provider Physician Assistant
DX: M22.2X1 Patellofemoral disorders, right knee (principal); M22.2X2 Patellofemoral disorders, left knee; M21.41 Flat foot [pes planus] (acquired), right foot
CPT/HCPCS: 97110; 97116; 97140; 97162; 97530

== ENCOUNTER 2024-06-03 14:16 | Outpatient (AMB) | payer OTHER, SELFPAY ==
[2024-06-03 14:22] VITALS: BP 170/108; BMI 44.4
--- NOTE | 2024-06-03 14:22 | A.OFFPC_ITS ---
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 He severely dozed off while watching TV, sitting and reading, sitting inactive in a public place and laying down in the afternoon without alcohol with an Dexter score Scale of 12 and this is why sleep study will be order. Blood pressure elevated and I will start him on losartan. Blood pressure will be recheck in 3 weeks by nurse navigator. He has impaired glucose tolerance but denies any polyuria, polydipsia or unintentional weight loss. Fasting blood glucose will be repeated. He is morbidly obese with a BMI of 44.4 and would like to see weight management for possible weight loss surgery. [facility] Surgical History History of surgery Family History Mother Glaucoma Gout Father Diabetes Social History (Updated 06/03/24 @ 14:56 by Mona English MD) Housing: Apartment Alcohol intake: current Alcohol intake frequency: a few times a month Alcohol type: hard liquor Patient Tobacco Use Status: Current someday Tobacco user Tobacco use type: Cigar e-Cigarette/Vaping Use: Never Used Second Hand Smoke Exposure: No service: No Current occupational status: employed Current occupational exposures/hazards: No Cognitive needs: No Hearing needs: No Vision needs: No Questionnaire Thrive Questionnaire Date Thrive assessed: 12/16/23 VALERIE-7 AMB Questionnaire VALERIE-7 Date VALERIE - 7 assessed: 12/16/23 Source: Developed by Drs. Gregorio Barrett, Viviana Montejo, Mohit Sharpe and colleagues, with an educational shira from [employer]. Review of Systems Const All systems reviewed & are unremarkable except as noted in HPI and below Reports daytime sleepiness Card Denies chest pain at rest, Denies chest pain with activity, Denies edema, Denies irregular heart rhythm, Denies claudication, Denies dyspnea, Denies dyspnea on exertion, Denies orthopnea, Denies paroxysmal nocturnal dyspnea and Denies slow heart rate Resp Denies cough, Denies dyspnea and Denies dyspnea on exertion GI Denies abdominal pain, Denies change in bowel habits, Denies excessive flatus, Denies nausea and Denies vomiting Physical exam (Primary Care) Vital Signs: Last Vital Signs BP 170/108 H 06/03/24 14:22 BMI result Body Mass Index 44.4 BMI Assessment/Plan discussion: High BMI High, discussed plan: lifestyle, weight reduction, dietary and physical activity Tobacco/Smoking Status: Tobacco use Status Tobacco use date assessed 12/16/23 06/03/24 14:25 Patient Tobacco Use Status Current someday Tobacco 06/03/24 14:56 Tobacco use type Cigar 06/03/24 14:56 e-Cigarette/Vaping Use Never Used 06/03/24 14:56 Thrive Assessment: Date of Thrive Assessment Date Thrive assessed 12/16/23 06/03/24 14:25 Resp Effort & Inspection: normal respiratory effort Auscultation: clear to auscultation bilaterally Cardio Jugular venous distension: no JVD Rate: regular rate Rhythm: regular rhythm Heart sounds: S1 normal heart sound present and S2 normal heart sound present Extrem General: Yes full ROM Assessment and Plan Assessment & Plan (1) Essential hypertension: Code(s): I10 - Essential (primary) hypertension Plan: Start losartan. Blood pressure goal is equal or less than 130/80. Recheck blood pressure with nurse navigator in 3 weeks. (2) Morbid obesity: Code(s): E66.01 - Morbid (severe) obesity due to excess calories Plan: Start diet and exercise. BMI goal is less than 30. Referred to weight management for possible weight loss surgery. (3) Daytime somnolence: Code(s): R40.0 - Somnolence Plan: Sleep study ordered. (4) Impaired glucose tolerance: Code(s): R73.02 - Impaired glucose tolerance (oral) Plan: Repeat fasting blood glucose. Advised to follow a low-carbohydrate diet. Orders: Orders Lipid Panel Today E66.01 - Morbid (severe) obesity due to excess calories, E78.5 - Hyperlipidemia, unspecified Comprehensive [place]. Panel Fast Today E66.01 - Morbid (severe) obesity due to excess calories RT home sleep study Today R40.0 - Somnolence IRON PROFILE Today D64.9 - Anemia, unspecified Sickle Cell Scr Today D64.9 - Anemia, unspecified Complete Blood Count Auto Diff Today D64.9 - Anemia, unspecified Vitamin B12 and Folate Today E53.8 - Deficiency of other specified B group vitamins Referrals Medical Weight Management Referral E66.01 - Morbid (severe) obesity due to exc ess calories Medications: New losartan 25 mg PO DAILY 90 days 90 tabs 1RF Coding Level of Care Code Est Pt Level 4 (50869) Complex EM visit Add On G2211 Diagnoses Essential hypertension I10 Morbid obesity E66.01 Daytime somnolence R40.0 Impaired glucose tolerance R73.02 Time Spent (min) 24
[2024-06-03 20:57] VITALS: BP 170/98
== END 2024-06-03 15:06 | disposition home or self-care (01) ==
PROVIDERS: PCP Internal Medicine; Visit Provider Internal Medicine
DX: I10 Essential (primary) hypertension (principal); E66.01 Morbid (severe) obesity due to excess calories; Z68.41 Body mass index [BMI] 40.0-44.9, adult; R40.0 Somnolence; R73.02 Impaired glucose tolerance (oral)
CPT/HCPCS: 99214

== ENCOUNTER 2024-07-22 14:55 | Outpatient (AMB) | payer OTHER, SELFPAY ==
[2024-07-22 15:05] VITALS: BP 136/80; BMI 43.6
--- NOTE | 2024-07-22 15:05 | MHC.PC.OV ---
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 He was doing good with his knees and his ankles but restarted few weeks ago. Blood pressure stable. He is morbidly obese with a BMI of 43.6 and has been intentionally losing weight by diet and exercise. Will be referred for screening colonoscopy. He said he had a colonoscopy over 10 years ago in [facility]. [facility] Surgical History History of surgery Family History Mother Glaucoma Gout Father Diabetes Social History Housing: Apartment Alcohol intake: current Alcohol intake frequency: a few times a month Alcohol type: hard liquor Patient Tobacco Use Status: Current someday Tobacco user Tobacco use type: Cigar e-Cigarette/Vaping Use: Never Used Second Hand Smoke Exposure: No service: No Current occupational status: employed Current occupational exposures/hazards: No Cognitive needs: No Hearing needs: No Vision needs: No Questionnaire Thrive Questionnaire Date Thrive assessed: 12/16/23 VALERIE-7 AMB Questionnaire VALERIE-7 Date VALERIE - 7 assessed: 12/16/23 Source: Developed by Drs. Gregorio Barrett, Viviana Montejo, Mohit Sharpe and colleagues, with an educational shira from [employer]. Review of Systems Const All systems reviewed & are unremarkable except as noted in HPI and below Card Denies chest pain at rest, Denies chest pain with activity, Denies edema, Denies irregular heart rhythm, Denies claudication, Denies dyspnea, Denies dyspnea on exertion, Denies orthopnea, Denies paroxysmal nocturnal dyspnea and Denies slow heart rate Resp Denies cough, Denies dyspnea and Denies dyspnea on exertion GI Denies abdominal pain, Denies change in bowel habits, Denies excessive flatus, Denies nausea and Denies vomiting Denies urinary hesitancy, Denies urinary incontinence and Denies urinary urgency Musc Reports arthralgias Physical exam (Primary Care) Vital Signs: Last Vital Signs BP 136/80 07/22/24 15:05 BMI result Body Mass Index 43.6 BMI Assessment/Plan discussion: High BMI High, discussed plan: lifestyle, weight reduction, dietary and physical activity Tobacco/Smoking Status: Tobacco use Status Tobacco use date assessed 12/16/23 07/22/24 15:07 Patient Tobacco Use Status Current someday Tobacco 07/22/24 15:07 Tobacco use type Cigar 07/22/24 15:07 e-Cigarette/Vaping Use Never Used 07/22/24 15:07 Thrive Assessment: Date of Thrive Assessment Date Thrive assessed 12/16/23 07/22/24 15:07 Resp Effort & Inspection: normal respiratory effort Auscultation: clear to auscultation bilaterally Cardio Jugular venous distension: no JVD Rate: regular rate Rhythm: regular rhythm Heart sounds: S1 normal heart sound present and S2 normal heart sound present Extrem General: Yes full ROM Assessment and Plan Assessment & Plan (1) Essential hypertension: Code(s): I10 - Essential (primary) hypertension Plan: Continue losartan. Blood pressure goal is equal or less than 130/80. (2) Morbid obesity: Code(s): E66.01 - Morbid (severe) obesity due to excess calories Plan: Continue diet and exercise. BMI goal is less than 30. (3) Right ankle pain: Code(s): M25.571 - Pain in right ankle and joints of right foot Plan: X-ray order. (4) Left ankle pain: Code(s): M25.572 - Pain in left ankle and joints of left foot Plan: X-ray order Orders: Orders XR ankle RT 2V Today M25.571 - Pain in right ankle and joints of right foot Comprehensive [place]. Panel Fast Today E66.01 - Morbid (severe) obesity due to excess calories XR ankle LT 2V Today M25.572 - Pain in left ankle and joints of left foot Referrals Gastroenterology Referral Z12.11 - Encounter for screening for malignant neoplasm of colon Coding Level of Care Code Est Pt Level 4 (09362) Complex EM visit Add On G2211 Diagnoses Essential hypertension I10 Morbid obesity E66.01 Right ankle pain M25.571 Left ankle pain M25.572 Time Spent (min) 23
== END 2024-07-22 15:32 | disposition home or self-care (01) ==
PROVIDERS: PCP Internal Medicine; Visit Provider Internal Medicine
DX: I10 Essential (primary) hypertension (principal); M25.571 Pain in right ankle and joints of right foot; M25.572 Pain in left ankle and joints of left foot
CPT/HCPCS: 99214

== ENCOUNTER 2024-07-22 15:44 | Outpatient (REF) | payer OTHER, SELFPAY ==
--- NOTE | ~2024-07-22 | XR_ITS ---
EXAMINATION: XR LEFT ANKLE XR RIGHT ANKLE CLINICAL INDICATION: Pain bilateral ankles and joints of feet. COMPARISON: 10/17/2023 bilateral feet. TECHNIQUE: 3 views of each ankle. FINDINGS: RIGHT ANKLE: Fixation hardware in the distal fibula with lateral plate and multiple screws. Surgical button along the distal tibia. Hardware appears intact. Small plantar calcaneal spur. Diffuse soft tissue swelling, more notable on the lateral aspect of the ankle. Small ossicle posterior to the ankle on the lateral view was not appreciated on the prior exam. Ossicle along the inferomedial aspect of the medial malleolus probably present on exam of 10/17/2023, although comparison limited due to technical differences between series of ankle x-rays versus foot x-rays. Correlation with clinical exam recommended to determine further management. LEFT ANKLE: Small plantar calcaneal spur. Ankle joint effusion with soft tissue swelling. Ankle mortise is maintained. No displaced fracture. XR/XR ankle LT 2V IMPRESSION: 1. Fixation hardware in the distal right fibula with lateral plate and multiple screws. Surgical button along the distal tibia. Hardware appears intact. 2. Small ossicle posterior to the right ankle on the lateral view was not appreciated on the prior exam. Ossicles along the inferomedial aspect of the medial malleolus probably present on exam of 10/17/2023, although comparison limited due to technical differences between series of ankle x-rays versus foot x-rays. Correlation with clinical exam recommended to determine further management. 3. Small bilateral calcaneal spurs. Electronically signed by: Skye Galicia MD 08/05/2024 03:05 PM EDT
--- NOTE | ~2024-07-22 | XR_ITS ---
EXAMINATION: XR LEFT ANKLE XR RIGHT ANKLE CLINICAL INDICATION: Pain bilateral ankles and joints of feet. COMPARISON: 10/17/2023 bilateral feet. TECHNIQUE: 3 views of each ankle. FINDINGS: RIGHT ANKLE: Fixation hardware in the distal fibula with lateral plate and multiple screws. Surgical button along the distal tibia. Hardware appears intact. Small plantar calcaneal spur. Diffuse soft tissue swelling, more notable on the lateral aspect of the ankle. Small ossicle posterior to the ankle on the lateral view was not appreciated on the prior exam. Ossicle along the inferomedial aspect of the medial malleolus probably present on exam of 10/17/2023, although comparison limited due to technical differences between series of ankle x-rays versus foot x-rays. Correlation with clinical exam recommended to determine further management. LEFT ANKLE: Small plantar calcaneal spur. Ankle joint effusion with soft tissue swelling. Ankle mortise is maintained. No displaced fracture. XR/XR ankle RT 2V IMPRESSION: 1. Fixation hardware in the distal right fibula with lateral plate and multiple screws. Surgical button along the distal tibia. Hardware appears intact. 2. Small ossicle posterior to the right ankle on the lateral view was not appreciated on the prior exam. Ossicles along the inferomedial aspect of the medial malleolus probably present on exam of 10/17/2023, although comparison limited due to technical differences between series of ankle x-rays versus foot x-rays. Correlation with clinical exam recommended to determine further management. 3. Small bilateral calcaneal spurs. Electronically signed by: Skye Galicia MD 08/05/2024 03:05 PM EDT
[2024-07-22 16:06] LABS: MANUAL DIFF FLAG NO
[2024-07-22 16:53] LABS: Sickle Cell Scr NEGATIVE (NEGATIVE)
[2024-07-22 17:06] LABS: Basophils Percent Auto 0.3 % (0-2); Eosinophils Absolute Auto 0.3 X10*3/uL (0.0-0.4); Eosinophils Percent Auto 4.5 % (0-4); Hematocrit 40.7 % (42.0-52.0); Hemoglobin 13.3 g/dl (14.0-18.0); Imm Gran Abs Auto 0.04 X10*3/uL (0.00-0.03); Imm Gran Pct Auto 0.5 % (0.0-0.4); Lymphocytes Absolute Auto 2.3 X10*3/uL (1.2-4.9); Lymphocytes Percent Auto 30.2 % (20-40); Mean Corpuscular HGB Conc 32.7 g/dl (31.0-36.0); Mean Corpuscular Hemoglobin 29.4 pg (27.0-33.0); Mean Corpuscular Volume 89.8 fL (80.0-98.0); Mean Platelet Volume 9.3 fL (9.4-12.4); Monocytes Absolute Auto 0.4 X10*3/uL (0.1-1.2); Monocytes Percent Auto 5.9 % (2-11); Neutrophils Absolute Auto 4.4 x10*3/uL (2.0-8.3); Neutrophils Percent Auto 58.6 % (45-73); Platelet Count 362 X10*3/uL (160-400); Red Blood Count 4.53 X10*6/uL (4.60-5.80); Red Cell Distribution Width 12.9 % (11.0-16.0); White Blood Count 7.5 X10*3/uL (4.8-10.8)
[2024-07-22 17:33] LABS: Alanine Aminotransferase 21 U/L (0-40); Albumin Level 4.3 g/dL (3.5-5.0); Alkaline Phosphatase 79 U/L (39-117); Anion Gap 8 (12-20); Aspartate Amino Transferase 18 U/L (5-37); Blood Urea Nitrogen 9 mg/dL (9-16); Calcium 9.6 mg/dL (8.4-10.2); Carbon Dioxide 32 mmol/L (22-29); Chloride 104 mmol/L (96-108); Cholesterol 131 mg/dL (<200); Estimated Glomerular Filt Rate > 60; Glucose Fasting 97 mg/dL (60-99); HDL Cholesterol 40 mg/dL (>40); Iron 95 mcg/dL (45-160); LDL Cholesterol Calculated 72 mg/dL (<100); Percent Iron Saturation 34 % (15-50); Sodium 140 mmol/L (135-145); Total Iron Binding Capacity 278 mcg/dL (228-428); Total Protein 7.3 g/dL (6.5-8.0); Triglycerides 98 mg/dL (<150); Unsaturated Iron Binding 183 ug/dL
[2024-07-22 18:13] LABS: Folate 6.9 ng/mL (> or = 4.0); Vitamin B12 446 pg/mL (200-900)
== END 2024-07-22 15:45 | disposition home or self-care (01) ==
LOC: HO.LAB 15:44
PROVIDERS: PCP Internal Medicine; Visit Provider Internal Medicine
DX: M25.571 Pain in right ankle and joints of right foot (principal); M25.572 Pain in left ankle and joints of left foot; E53.8 Deficiency of other specified B group vitamins; D64.9 Anemia, unspecified; E66.01 Morbid (severe) obesity due to excess calories; E78.5 Hyperlipidemia, unspecified
CPT/HCPCS: 36415; 73600; 80053; 80061; 82607; 82746; 83540; 85025; 85660

== ENCOUNTER 2024-12-16 15:16 | Outpatient (AMB) | payer OTHER, SELFPAY ==
--- NOTE | 2024-12-16 15:17 | MHC.PC.OV ---
Vital Signs 12/16/24 15:19 Height 5 ft 9 in Weight 288 lb BMI 42.5 BP 170/112 H Blood Pressure Location Lt brachial Position Sitting Intake Visit Reasons: PE Intake Note: Patient here for a physical exam, c/o bilateral knee pain Career Development Associate Required: Yes Career Development Associate Language: Slovenian Information Interpreted: non-clinical & clinical Accompanied by: Self / Same As Patient Allergies No Known Allergies Allergy (Verified 12/16/24 15:37) Medication List - Last Reconciled 12/16/24 by Mona English MD [Anti-pronation orthotics Anti-pronation orthotics] losartan 25 mg PO DAILY 90 days Tobacco use date assessed: 12/16/24 Dental Screening Dental Screen Date: 12/16/24 Did you have a dental visit in the last 12 months?: No Did you have a dental problem in the last 6 months where you did not have access to dental care?: No Was dental information given to patient?: Yes HPI HPI Comments History of Present Illness Details The patient is a 44-year-old male presenting for his physical exam. He reports having been diagnosed with hypertension, for which he was previously prescribed Losartan. However, he discontinued the medication due to its absence and felt his condition was managed as he has been losing weight and experiencing fewer symptoms like dizziness. Despite this, he acknowledges high blood pressure concerns. Additionally, the patient reports knee pain, which he attributes to a history of having right leg surgery. He requests to restart physical therapy, as it previously provided relief. 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 The suspension was due to an incident involving alcohol use; however, he completed required classes. He mentions recent unintentional weight loss of approximately 20 pounds, attributed to lifestyle changes. His family history is positive for diabetes in his father and glaucoma and gout in his mother. The patient admits to occasional tobacco use and alcohol consumption, with the latter being a prior contributor to legal issues. [facility] Surgical History History of surgery Family History Mother Glaucoma Gout Father Diabetes Social History Housing: Apartment Alcohol intake: current Alcohol intake frequency: a few times a month Alcohol type: hard liquor Patient Tobacco Use Status: Current someday Tobacco user Tobacco use type: Cigar e-Cigarette/Vaping Use: Never Used Second Hand Smoke Exposure: No service: No Current occupational status: employed Current occupational exposures/hazards: No Cognitive needs: No Hearing needs: No Vision needs: No Questionnaire PHQ-9 Over the last 2 weeks, how often have you been bothered by any of the following problems? 1. Little interest or pleasure in doing things: not at all 2. Feeling down, depressed, or hopeless: not at all 3. Trouble falling or staying asleep, or sleeping too much: several days 4. Feeling tired or having little energy: more than half the days 5. Poor appetite or overeating: not at all 6. Feeling bad about yourself - or that you are a failure or have let yourself or your family down: nearly every day 7. Trouble concentrating on things, such as reading the newspaper or watching television: nearly every day 8. Moving or speaking so slowly that other people could have noticed. Or the opposite - being so fidgety or restless that you have been moving around a lot more than usual: several days 9. Thoughts that you would be better off or of hurting yourself in some way: not at all Total score: 10 Depression Screening Interpretation: Positive Depression Screening Follow-up: Existing condition, Follow-up Visit Requested and Declines treatment Depression Screening Done: Yes 83027 - PHQ-9 Billing: Yes Source: Developed by Drs. Gregorio Barrett, Viviana Montejo, Mohit Sharpe and colleagues, with an educational shira from [employer]. Thrive Questionnaire Date Thrive assessed: 12/16/24 I am a: Patient What is your living situation today?: I have a steady place to live Within the past 12 months, did the food you bought not last and you didn't have the money to get more?: Sometimes True Within the past 12 months, did you worry whether your food would run out before you got money to buy more?: Sometimes True Do you have trouble paying for medicines?: No Do you have trouble getting transportation to medical appointments?: Yes Do you have trouble paying your heating and electricity bill?: No Do you have trouble taking care of your child, family member or friend?: No Do you have trouble with day-to-day activities such as bathing, preparing meals, shopping, managing finances, etc.?: No Are you currently unemployed and looking for a job?: No Are you interested in more education?: No Please select the resources that you would like help with: None Currently or been in a relationship where the following occur: Controlled Emotionally and No concerns reported THRIVE Score: 4 AUDIT C Alcohol Use Questionnaire (AUDIT-C) 1. How often do you have a drink containing alcohol?: Monthly or less 2. How many drinks containing alcohol do you have on a typical day when you are drinking?: 1 or 2 3. How often do you have six or more drinks on one occasion?: Monthly Total Score: 3 VALERIE-7 AMB Questionnaire VALERIE-7 Date VALERIE - 7 assessed: 12/16/24 Feeling nervous, anxious, or on edge: 1 = Several days Not being able to stop or control worryin = More than half the days Worrying too much about different things: 3 = Nearly every day Trouble relaxin = Not at all Being so restless that it is hard to sit still: 1 = Several days Becoming easily annoyed or irritable: 3 = Nearly every day Feeling afraid as if something awful might happen: 0 = Not at all Total VALERIE-7 score (0-4 normal; 5-9 mild; 10-14 moderate; 15-21 severe): 10 Source: Developed by Drs. Gregorio Barrett, Viviana Montejo, Mohit Sharpe and colleagues, with an educational shira from [employer]. VALERIE-7 Assessment Billing VAELRIE-7 Assessment Tool: VALERIE-7 Assessment 82398 Review of Systems Const All systems reviewed & are unremarkable except as noted in HPI and below Card Denies chest pain at rest, Denies chest pain with activity, Denies edema, Denies irregular heart rhythm, Denies claudication, Denies dyspnea, Denies dyspnea on exertion, Denies orthopnea, Denies paroxysmal nocturnal dyspnea and Denies slow heart rate Resp Denies cough, Denies dyspnea and Denies dyspnea on exertion Denies urinary hesitancy, Denies urinary incontinence and Denies urinary urgency Musc Reports arthralgias Physical exam (Primary Care) Vital Signs: Last Vital Signs BP 170/112 H 02/05/25 15:19 BMI result Body Mass Index 42.5 BMI Assessment/Plan discussion: High BMI High, discussed plan: lifestyle, weight reduction, dietary and physical activity Tobacco/Smoking Status: Tobacco use Status Tobacco use date assessed 12/16/24 12/16/24 15:26 Patient Tobacco Use Status Current someday Tobacco 12/16/24 15:18 Tobacco use type Cigar 12/16/24 15:18 e-Cigarette/Vaping Use Never Used 12/16/24 15:18 PHQ-9: PHQ-9 Score PHQ-9: Total score 10 12/16/24 15:22 Depression Screening Interpretation: Positive Depression Screening Follow-up: Existing condition, Follow-up Visit Requested and Declines treatment Thrive Assessment: Date of Thrive Assessment Date Thrive assessed 12/16/24 12/16/24 15:18 Currently or been in a relationship where the following occur: Controlled Emotionally and No concerns reported HENMT Head: Yes normal to inspection, Yes normocephalic and Yes atraumatic Ears: external ears normal Eyes General: appearance normal, both eyes and all related structures Eyelids: Yes eyelids normal Conjunctivae: conjunctivae normal Neck Neck: Yes normal visual inspection and Yes supple Resp Effort & Inspection: normal respiratory effort Auscultation: clear to auscultation bilaterally Cardio Jugular venous distension: no JVD Rate: regular rate Rhythm: regular rhythm Heart sounds: S1 normal heart sound present and S2 normal heart sound present GI Inspection: Yes normal to inspection Palpation (GI): Soft to palpation and nontender Auscultation: normal bowel sounds Skin General skin exam: no rashes or lesions noted Neuro General: no focal motor deficits Extrem General: Yes full ROM Psych Appearance: grossly normal Office Procedures Flu Questionnaire Does the patient have a severe egg allergy?: No Immunizations Fluarix Triv [id number] (PF) 45 mcg (15 mcg x 3)/0.5 mL IM syringe Performing Provider: Mona English MD Per[facility] [place] [facility] Documented (not given) by: IRLANDA Sheppard on 12/16/24 15:18 Reason Not Given: Patient Refused Coding Level of Care Code Est Pt Level 3 (54358) Est Pt Prev Care 40-64y(58909) Diagnoses Physical exam Z00.00 Morbid obesity E66.01 Right knee pain M25.561 Left knee pain M25.562 Mild major depression F32.0 Additional Codes PHQ-9 - 51827 - PHQ-9 Billing: Yes ([id number]) VALERIE-7 Assessment Billing - VALERIE-7 Assessment Tool: VALERIE-7 Assessment 39545 ([id number]) Time Spent (min) 35 Assessment & Plan Assessment & Plan (1) Physical exam: Code(s): Z00.00 - Encounter for general adult medical examination without abnormal findings Category: Medical (2) Morbid obesity: Code(s): E66.01 - Morbid (severe) obesity due to excess calories Category: Medical (3) Right knee pain: Code(s): M25.561 - Pain in right knee Category: Medical (4) Left knee pain: Code(s): M25.562 - Pain in left knee Category: Medical (5) Mild major depression: Code(s): F32.0 - Major depressive disorder, single episode, mild Category: Medical Plan - Reinitiate Losartan to manage hypertension and prevent complications. - Refer to physical therapy for knee rehabilitation. - Offer counseling services to address depression. If patient declines, monitor for symptom changes. - Reinforce and support weight loss and exercise efforts. Plan follow-up to discuss progress. - Highlight the importance of tobacco and alcohol cessation; consider dedicated programs if interested. - Schedule follow-up blood pressure reading in 3 weeks. Patient was informed and verbally consented to the use of an ambient scribe for clinic note documentation during this visit. I emphasized the critical need for controlling the patient's hypertension to prevent serious complications, including cardiac and cerebrovascular events. Recommended reinitiation of Losartan, which was effective previously. Discussed the benefit of physical therapy for knee pain management. Addressed the patient's depressive symptoms, suggesting that counseling could provide structured support. Additionally, encouraged continuation of healthier lifestyle behaviors and reduction of alcohol and tobacco use due to potential health impacts. Provided assurances that gradual progress on these fronts would be beneficial. Orders: Orders Influenza [id number] Immunization Today Z23 - Encounter for immunization PT Evaluation and Treatment Today M25.561 - Pain in right knee, M25.562 - Pain in left knee Referrals Orthopedics Referral M25.561 - Pain in right knee, M25.562 - Pain in left knee Medications: Refilled losartan 25 mg PO DAILY 90 days 90 tabs 1RF Patient Instructions: - Start taking Losartan as prescribed. - Schedule and attend physical therapy sessions for knee pain. - Consider counseling for depression; contact if interested. - Maintain recent healthy lifestyle changes and continue with exercise plans. - Monitor blood pressure at home if possible and contact should levels remain high. - Avoid tobacco and limit alcohol consumption further to prevent future complications.
[2024-12-16 15:19] VITALS: BP 170/112; BMI 42.5
--- OUTSIDE RECORDS SUMMARY | 2024-12-16 16:12 | XMS_ITS | Clinical Summary ---
Author Organization [facility] Address [address] [place] [address] Care Team Providers Care Reimbursement Spec Name Role Phone Unavailable Primary Care Provider Unavailabl e Social History Tobacco Use Types Packs/Day Years Used Date Smoking Tobacco: Never Assessed Sex and Gender Information Value Date Recorded Sex Assigned at Not on file Gender Identity Not on file Sexual Orientation Not on file Plan of Treatment Health Maintenance Due Date Last Done Comments DTaP,Tdap,and Td Vaccines (1 - Tdap) 1997 Hepatitis B Vaccines (1 of 3 - 19+ 3-dose series) 1997 COVID-19 Vaccine (2023-2 5 season) 2024 Influenza Vaccine (#1) 2024 HIB Vaccines Aged Out No longer eligi ble based on patient's age to complete this topic HPV Vaccines Aged Out No longer eligi ble based on patient's age to complete this topic Hepatitis A Vaccines Aged Out No long er eligible based on patient's age to complete this topic IPV Vaccines Aged Out No longer eligi ble based on patient's age to complete this topic MMR Vaccines Aged Out No longer eligi ble based on patient's age to complete this topic Meningococcal ACWY Vaccine Aged Out N o longer eligible based on patient's age to complete this topic Pneumococcal Vaccine: Pediat rics (0 to 5 Years) and At-Risk Patients (6 to 64 Years) Aged Out No longer eligible b ased on patient's age to complete this topic RSV Immunization Patients Un yves 20 months Aged Out No longer eligible b ased on patient's age to complete this topic Varicella Vaccines Aged Out No longer eligible based on patient's age to complete this topic
== END 2024-12-16 15:53 | disposition home or self-care (01) ==
PROVIDERS: PCP Internal Medicine; Visit Provider Internal Medicine
DX: Z00.00 Encounter for general adult medical examination without abnormal findings (principal); M25.561 Pain in right knee; M25.562 Pain in left knee; E66.01 Morbid (severe) obesity due to excess calories; Z68.41 Body mass index [BMI] 40.0-44.9, adult; F32.0 Major depressive disorder, single episode, mild; Z23 Encounter for immunization

== ENCOUNTER → 2024-12-16 15:16 | Outpatient (BNVA) | payer OTHER, SELFPAY | PROVIDERS: PCP Internal Medicine; Visit Provider Internal Medicine | DX: Z00.01 Encounter for general adult medical examination with abnormal findings (principal); M25.561 Pain in right knee; M25.562 Pain in left knee; E66.01 Morbid (severe) obesity due to excess calories; Z68.41 Body mass index [BMI] 40.0-44.9, adult; F32.0 Major depressive disorder, single episode, mild | CPT/HCPCS: 96127 ==

== ENCOUNTER 2024-12-23 09:11 | Outpatient (AMB) | payer OTHER, SELFPAY ==
[2024-12-23 09:15] VITALS: BP 142/98; PULSE 84; O2SAT 97; BMI 42.3
--- NOTE | 2024-12-23 09:15 | AM.OFFWIN_ITS ---
Intake Vital Signs 12/23/24 09:15 Height 5 ft 9 in Weight 286 lb 6 oz BMI 42.3 BP 142/98 H Blood Pressure Location Rt brachial Position Sitting Pulse 84 Pulse Source Pulse Oximeter Pulse Oximetry (%) 97 Oxygen Delivery Method Room Air Intake Visit Reasons: EP-b/l knees pain (arthritis) Patient Tobacco Use Status: Current someday Tobacco user Allergies No Known Allergies Allergy (Verified 12/23/24 09:18) Medication List - Last Reconciled 12/23/24 by Ernie Jean MD [Anti-pronation orthotics Anti-pronation orthotics] losartan 25 mg PO DAILY 90 days Do you need a note to return to daycare/school/sports/work: Yes HPI EP-b/l knees pain (arthritis) HPI Details - The patient is a 44-year-old male pres enting with knee pain exacerbation. - Chronic osteoarthritis diagnosed, with an x-ray report dated October 17, 2023, confirming the presence of arthritis in the knee. - The patient experienced a sudden worse davin of symptoms in the past week, causing absences from work due to severe knee pain. - Notable symptoms include knee instabil ity, especially upon prolonged standing or walking. - The patient has previously sought advi ce from their primary care physician and continues to await a specialist orthopedic consultation. - Current management includes the use of epfh-cum-onvdsaj topical pain relief measures. Problem List - Osteoarthritis of the knee bilateral Patient Instructions - Take the prescribed medication diclofe nac 75 mg b.i.d. with food, twice daily, to manage knee pain. - Continue using the lgaa-ess-vvoyqul cr eam if it helps. - Monitor symptoms and be cautious durin g activities involving prolonged standing or walking. - Attend the scheduled orthopedic appoin tment on February 01 for further evaluation. Review of Systems - Musculoskeletal: Reports exacerbation of knee pain, knee instability, and occasional swelling.. - General: No fever no chills - Neurological: No headaches no dizziness - Ear nose throat: No sore throat no hearing difficulty no ear pain - Cardiovascular: No syncope, no chest pain, no palpitations - Gastrointestinal: No nausea vomiting or diarrhea - Endocrine: No polyuria polydipsia no heat intolerance - Genitourinary: No dysuria , no blood in urine Physical Exam General: No acute distress HEENT: No acute findings Neck: Supple Respiratory system: Able to talk in full sentences, no audible wheeze Gastrointestinal: No pain Extremities: Severe knee pain, has been having this pain for the past 1 week Range of motion limited secondary to pain bilateral, no erythema mild swelling noted left knee PASTRY ARTIST: Alert awake oriented x3 motor sensory intact Skin: Normal turgor PFSH Surgical History History of surgery Family History Mother Glaucoma Gout Father Diabetes Social History Housing: Apartment Alcohol intake: current Alcohol intake frequency: a few times a month Alcohol type: hard liquor Patient Tobacco Use Status: Current someday Tobacco user Tobacco use type: Cigar e-Cigarette/Vaping Use: Never Used Second Hand Smoke Exposure: No service: No Current occupational status: employed Current occupational exposures/hazards: No Cognitive needs: No Hearing needs: No Vision needs: No Physical Exam Vital Signs: Last Vital Signs Pulse 84 12/23/24 09:15 BP 142/98 H 12/23/24 09:15 Pulse Ox 97 12/23/24 09:15 Oxygen Delivery Method Room Air 12/23/24 09:15 BMI result Body Mass Index 42.3 Assessment & Plan Assessment & Plan (1) Bilateral primary osteoarthritis of knee: Code(s): M17.0 - Bilateral primary osteoarthritis of knee (2) Knee pain, bilateral: Code(s): M25.561 - Pain in right knee; M25.562 - Pain in left knee Qualifiers: Chronicity: acute Qualified Code(s): M25.561 - Pain in right knee; M25.562 - Pain in left knee Plan - The patient is a 44-year-old male presenting with knee pain exacerbation. - Chronic osteoarthritis diagnosed, with an x-ray report dated October 17, 2023, confirming the presence of arthritis in the knee. - The patient experienced a sudden worsening of symptoms in the past week, causing absences from work due to severe knee pain. - Notable symptoms include knee instability, especially upon prolonged standing or walking. - The patient has previously sought advice from their primary care physician and continues to await a specialist orthopedic consultation. - Current management includes the use of zcxx-gcw-xiyvuzy topical pain relief measures. Problem List - Osteoarthritis of the knee bilateral Patient Instructions - Take the prescribed medication diclofenac 75 mg b.i.d. with food, twice daily, to manage knee pain. - Continue using the kjgm-isp-optxpqs cream if it helps. - Monitor symptoms and be cautious during activities involving prolonged cherry ding or walking. - Attend the scheduled orthopedic appointment on February 01 for further evaluation. Medications: New 2 diclofenac sodium 75 mg PO BID 20 tabs 0RF pain 10 days Coding Level of Care Code Est Pt Level 3 (13011) Diagnoses Bilateral primary osteoarthritis of knee M17.0 Acute pain of both knees M25.561; M25.562 Chronicity: acute
--- OUTSIDE RECORDS SUMMARY | 2024-12-23 10:10 | XMS_ITS | Clinical Summary ---
Author Organization [facility] Address [address] [place] [address] Care Team Providers Care Master Automotive Technician Name Role Phone Unavailable Primary Care Provider Unavailabl e Social History Tobacco Use Types Packs/Day Years Used Date Smoking Tobacco: Never Assessed Sex and Gender Information Value Date Recorded Sex Assigned at Not on file Legal Sex Male 6:52 PM EST Gender Identity Not on file Sexual Orientation [...] patient's age to complete this topic Meningococcal B Vacine Aged Out No lo nger eligible based on patient's age to complete [...]
== END 2024-12-23 09:36 | disposition home or self-care (01) ==
PROVIDERS: PCP Internal Medicine; Visit Provider Internal Medicine
DX: M17.0 Bilateral primary osteoarthritis of knee (principal); M25.561 Pain in right knee; M25.562 Pain in left knee

== ENCOUNTER → 2024-12-23 09:11 | Outpatient (BNVA) | payer OTHER, SELFPAY | PROVIDERS: PCP Internal Medicine ==

== ENCOUNTER 2024-12-30 09:33 | Outpatient (AMB) | payer OTHER, SELFPAY ==
--- NOTE | 2024-12-30 09:40 | MHC.OFFWIV ---
Intake Vital Signs 12/30/24 09:41 Weight 290 lb BP 140/100 H Blood Pressure Location Lt brachial Position Sitting Pulse 80 Pulse Source Pulse Oximeter Pulse Oximetry (%) 98 Oxygen Delivery Method Room Air Intake Visit Reasons: EP b/l knee pain Intake Note: Patient here for bilat knee pain and swelling Patient Tobacco Use Status: Current someday Tobacco user Allergies No Known Allergies Allergy (Verified 12/30/24 09:42) Medication List - Last Reconciled 12/30/24 by Ernie Jean MD [Anti-pronation orthotics Anti-pronation orthotics] diclofenac sodium 75 mg PO BID 10 days losartan 25 mg PO DAILY 90 days Do you need a note to return to daycare/school/sports/work: Yes HPI EP b/l knee pain HPI Details Patient is a 44-year-old gentleman with a history of osteoarthritis bilateral knee Was evaluated 12th of this month for knee pain and prescribed diclofenac 75 b.i.d. 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 with food Letter provided to be off work till January 11 Further management should be through primary care. [facility] Surgical History History of surgery Family History Mother Glaucoma Gout Father Diabetes Social History Housing: Apartment Alcohol intake: current Alcohol intake frequency: a few times a month Alcohol type: hard liquor Patient Tobacco Use Status: Current someday Tobacco user Tobacco use type: Cigar e-Cigarette/Vaping Use: Never Used Second Hand Smoke Exposure: No service: No Current occupational status: employed Current occupational exposures/hazards: No Cognitive needs: No Hearing needs: No Vision needs: No Review of Systems Const All systems reviewed & are unremarkable except as noted in HPI and below Physical Exam Vital Signs: Last Vital Signs Pulse 80 12/30/24 09:41 BP 140/100 H 12/30/24 09:41 Pulse Ox 98 12/30/24 09:41 Oxygen Delivery Method Room Air 12/30/24 09:41 Const General: no acute distress Orientation/consciousness: patient oriented x3 Eyes General: appearance normal, both eyes and all related structures Resp Effort & Inspection: normal respiratory effort and able to speak in complete sentences Neuro General: patient oriented x3 Extrem Other: Bilateral knee pain without any swelling, range of motion slightly limited due to pain, crepitus present Psych Mental Status: mental status grossly normal Assessment & Plan Assessment & Plan (1) Knee pain, bilateral: Code(s): M25.561 - Pain in right knee; M25.562 - Pain in left knee Qualifiers: Chronicity: acute Qualified Code(s): M25.561 - Pain in right knee; M25.562 - Pain in left knee (2) Bilateral primary osteoarthritis of knee: Code(s): M17.0 - Bilateral primary osteoarthritis of knee Plan Patient is a 44-year-old gentleman with a history of osteoarthritis bilateral knee Was evaluated 12th of this month for knee pain and prescribed diclofenac 75 b.i.d. 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 with food Letter provided to be off work till January 11 Further management should be through primary care. Orders: Orders XR knee RT 2V Today M17.0 - Bilateral primary osteoarthritis of knee, M25.561 - Pain in right knee, M25.562 - Pain in left knee XR knee LT 2V Today M17.0 - Bilateral primary osteoarthritis of knee, M25.561 - Pain in right knee, M25.562 - Pain in left knee Medications: New prednisone 50 mg PO DAILY 5 tabs 0RF 5 days Refilled diclofenac sodium 75 mg PO BID 20 tabs 0RF pain 10 days Coding Level of Care Code Est Pt Level 3 (95156) Diagnoses Acute pain of both knees M25.561; M25.562 Chronicity: acute Bilateral primary osteoarthritis of knee M17.0
[2024-12-30 09:41] VITALS: BP 140/100; PULSE 80; O2SAT 98
--- OUTSIDE RECORDS SUMMARY | 2024-12-30 09:51 | XMS_ITS | Clinical Summary ---
Author Organization [facility] ity Address [address] [place] [address] Care Team Providers Care Speech Pathology Supervisor Name Role Phone Unavailable Primary Care Provider [...]
== END 2024-12-30 10:04 | disposition home or self-care (01) ==
PROVIDERS: PCP Internal Medicine; Visit Provider Internal Medicine
DX: M25.561 Pain in right knee (principal); M25.562 Pain in left knee; M17.0 Bilateral primary osteoarthritis of knee

== ENCOUNTER 2024-12-30 09:55 | Outpatient (REF) | payer OTHER, SELFPAY ==
--- NOTE | ~2024-12-30 | XR_ITS ---
EXAMINATION: XR KNEE, LEFT CLINICAL INFORMATION: M25.561 - Pain in right knee COMPARISON: 10/17/2023. TECHNIQUE: Two views of the left knee. FINDINGS: No fracture, dislocation, or suspicious bone lesion. Normal bone mineralization. Normal alignment. Moderate medial and mild lateral and patellofemoral compartment narrowing. Small marginal productive osteophytes present Mild spurring of the tibial spines. No significant joint effusion. Soft tissues appear normal. XR/XR knee LT 2V IMPRESSION: 1. Moderate medial compartment osteoarthritis. 2. Mild medial and patellofemoral compartment osteoarthritis. 3. No joint effusion. Electronically signed by: Dwayne Diaz MD 12/30/2024 01:39 PM EST
--- NOTE | ~2024-12-30 | XR_ITS ---
EXAMINATION: XR KNEE, RIGHT CLINICAL INFORMATION: M25.561 - Pain in right knee COMPARISON: 10/17/2023. TECHNIQUE: Two views of the right knee. FINDINGS: No fracture, dislocation, or suspicious bone lesion. Normal bone mineralization. Normal alignment. Mild medial greater than lateral and patellofemoral compartment narrowing. Small marginal productive osteophytes present Minimal spurring of the tibial spines. No significant joint effusion. Soft tissues appear normal. XR/XR knee RT 2V IMPRESSION: 1. Mild tricompartmental osteoarthritis, most significant medial compartment. 2. No joint effusion. Electronically signed by: Dwayne Diaz MD 12/30/2024 01:42 PM [facility]
--- NOTE | ~2024-12-30 | XR_ITS ---
EXAMINATION: XR TOES, RIGHT CLINICAL INFORMATION: M79.674 - Pain in right toe(s) COMPARISON: 10/17/2023. X-ray right foot TECHNIQUE: 3 views of the right toes were obtained. FINDINGS: No fracture, dislocation, or suspicious bone lesion. Normal bone mineralization. Very mild hallux valgus. Mild degenerative arthritis of the first MTP joint. Joint spaces are otherwise preserved. No significant arthropathy. Prior fixation hardware in the medial and lateral ankle. Soft tissues appear normal. XR/XR toe RT min 2V IMPRESSION: 1. No acute findings right toes. 2. Minimal hallux valgus with mild degenerative arthritis at the first MTP joint. Electronically signed by: Dwayne Diaz MD 12/30/2024 01:48 PM [facility]
--- OUTSIDE RECORDS SUMMARY | 2024-12-30 10:20 | XMS_ITS | Clinical Summary ---
Author Organization [facility] ity Address [address] [place] [address] Care Team Providers Care Gas Meter Repairer Name Role Phone Unavailable Primary Care Provider [...]
== END 2024-12-30 09:56 | disposition home or self-care (01) ==
LOC: HO.HMGCX 09:55
PROVIDERS: PCP Internal Medicine; Visit Provider Internal Medicine
DX: M79.674 Pain in right toe(s) (principal); M17.0 Bilateral primary osteoarthritis of knee
CPT/HCPCS: 73560; 73660

== ENCOUNTER → 2024-12-30 09:59 | Outpatient (BNV) | payer OTHER, SELFPAY | PROVIDERS: PCP Internal Medicine; Visit Provider Radiology Diagnostic Radiology | DX: M25.561 Pain in right knee (principal); M25.562 Pain in left knee; M79.674 Pain in right toe(s) | CPT/HCPCS: 73560; 73660 ==

== ENCOUNTER → 2025-01-01 15:01 | Outpatient (BNVA) | payer OTHER, SELFPAY | PROVIDERS: PCP Internal Medicine ==

== ENCOUNTER 2025-01-18 11:29 | Outpatient (AMB) | payer OTHER, SELFPAY ==
--- NOTE | 2025-01-18 11:31 | AM.OFFWIN_ITS ---
Intake Vital Signs 01/18/25 11:32 Weight 297 lb BP 136/80 Blood Pressure Location Lt brachial Position Sitting Pulse 74 Pulse Source Pulse Oximeter Pulse Oximetry (%) 97 Oxygen Delivery Method Room Air Intake Visit Reasons: EP Bilat knee swelling Intake Note: Patient here for bilat knee swelling and pain and has not been able to work Patient Tobacco Use Status: Current someday Tobacco user Allergies No Known Allergies Allergy (Verified 12/30/24 09:42) Do you need a note to return to daycare/school/sports/work: Yes HPI HPI Comments History of Present Illness Details 44 y/o male patient who presents to the walk in clinic with c/o chronic B/L knee pain and swelling. He has an appointment with Orthopedics tomorrow. Had Xrays of both Knees 12/30: No fracture, dislocation, or suspicious bone lesion. Normal bone Mineralization. Normal alignment. Moderate medial and mild lateral and patellofemoral compartment narrowing. Small marginal productive osteophytes present. Mild spurring of the tibial spines. [facility] Surgical History History of surgery Family History Mother Glaucoma Gout Father Diabetes Social History Housing: Apartment Alcohol intake: current Alcohol intake frequency: a few times a month Alcohol type: hard liquor Patient Tobacco Use Status: Current someday Tobacco user Tobacco use type: Cigar e-Cigarette/Vaping Use: Never Used Second Hand Smoke Exposure: No service: No Current occupational status: employed Current occupational exposures/hazards: No Cognitive needs: No Hearing needs: No Vision needs: No Review of Systems Const All systems reviewed & are unremarkable except as noted in HPI and below Physical Exam Vital Signs: Last Vital Signs Pulse 74 01/18/25 11:32 BP 136/80 01/18/25 11:32 Pulse Ox 97 01/18/25 11:32 Oxygen Delivery Method Room Air 01/18/25 11:32 Const General: cooperative and no acute distress Nutritional Appearance: obese Orientation/consciousness: patient oriented x3 Neuro General: patient oriented x3 Extrem Right lower extremity: knee Details: normal to inspection, tenderness Location: of the patella, of the medial joint line and of the lateral joint line and normal ROM; no crepitus Left lower extremity: knee Details: normal to inspection, tenderness Location: of the patella, of the medial joint line and of the lateral joint line and normal ROM Psych Speech and movement: Normal speech and movement present Assessment & Plan Assessment & Plan (1) Bilateral primary osteoarthritis of knee: Code(s): M17.0 - Bilateral primary osteoarthritis of knee Plan: F/U with Orthopedics as scheduled. Continue with Diclofenac as prescribed. Ice/Hot Rest Coding Level of Care Code Est Pt Level 4 (71562) Diagnoses Bilateral primary osteoarthritis of knee M17.0 Time Spent (min) 20
[2025-01-18 11:32] VITALS: BP 136/80; PULSE 74; O2SAT 97
--- OUTSIDE RECORDS SUMMARY | 2025-01-18 13:07 | XMS_ITS | Clinical Summary ---
Author Organization [facility] ity Address [address] [place] [address] Care Team Providers Care Grab Hooker Name Role Phone Unavailable Primary Care Provider [...]
== END 2025-01-18 12:10 | disposition home or self-care (01) ==
PROVIDERS: PCP Internal Medicine; Visit Provider Nurse Practitioner Family
DX: M17.0 Bilateral primary osteoarthritis of knee (principal)

== ENCOUNTER 2025-01-19 10:48 | Outpatient (AMB) | payer OTHER, SELFPAY ==
[2025-01-19 10:57] VITALS: BMI 43.9
--- NOTE | 2025-01-19 10:57 | A.OFFVIS_ITS ---
Vital Signs 01/19/25 10:57 Height 5 ft 9 in Weight 297 lb BMI 43.9 Intake Visit Reasons: OV-B/L knee pain Intake Note: Giorgio is a 44 year old male who presents today for an evaluation of bilateral knees. Patient was recently seen on multiple occasions at [facility] walk in clinic for knee pain and swelling. He was prescribed diclofenac as well as a round of prednisone. He discontinue use of prednisone due to his vision going blurry and jittery, stating he was not acting himself. Currently he has constant pain and swelling making it difficult to bend his knee. States he has not been able to go to work. Finds little relief with his pain with taking diclofenac however it does not help with his swelling. His pain is equal in both knees. He uses knee bracing on both knees. Allergies prednisone Adverse Reaction (Verified 01/19/25 11:08) blurry vision, jitters Medication List - Last Reconciled 01/19/25 by Lady Ch PA-C [Anti-pronation orthotics Anti-pronation orthotics] diclofenac sodium 75 mg PO BID 10 days losartan 25 mg PO DAILY 90 days HPI HPI OV-B/L knee pain: Details: 44-year-old gentleman returns to the office today for bilateral knee pain. Right greater than left. States the knees fluctuate with swelling at the end of the day. He states his right knee has been stiff and significantly painful over the last several days while at work. [facility] Surgical History History of surgery Family History Mother Glaucoma Gout Father Diabetes Social History Housing: Apartment Alcohol intake: current Alcohol intake frequency: a few times a month Alcohol type: hard liquor Patient Tobacco Use Status: Current someday Tobacco user Tobacco use type: Cigar e-Cigarette/Vaping Use: Never Used Second Hand Smoke Exposure: No service: No Current occupational status: employed Current occupational exposures/hazards: No Cognitive needs: No Hearing needs: No Vision needs: No Review of Systems Const All systems reviewed & are unremarkable except as noted in HPI and below Physical Exam Vital Signs: BMI result Body Mass Index 43.9 Const General: cooperative, healthy appearing, comfortable, no acute distress, well developed and alert Orientation/consciousness: patient oriented x3 HEENT Head: Yes normal to inspection, Yes normocephalic and Yes atraumatic Eyes General: appearance normal, both eyes and all related structures Resp Effort & Inspection: normal respiratory effort and able to speak in complete sentences Cardio Rate: regular rate Peripheral pulses: Peripheral pulses 2+ throughout GI Palpation (GI): Soft to palpation Skin Lesions: no lesions Rashes: no rashes Neuro General: patient oriented x3 Extrem Other: Bilateral knee: Skin intact, no erythema or joint effusion. Tenderness along the medial and lateral joint line. Full ROM with crepitus. Negative Darryl?s. No ligamentous laxity. NVI. Bilat ankles normal to inspection. He has some tenderness bilaterally along the peroneal tendon. No weakness or instability. He does have bilateral pes planus. Office Procedures AMB Joint Injection/Aspiration Joint Injection/Aspiration Details: 55cc yellow joint fluid asp from the right knee Primary Site: right knee Secondary Site: left knee Prep: site was prepped using aseptic technique, ethochloride spray was applied and injection warnings given Injected: 80 mg of, DepoMedrol, 1% plain lidocaine and 0.25% bupivacaine Procedure: The patient tolerated the procedure well and there was some relief with the local anesthesia Coding - Glenohumeral/Tronchanteric Bursa/Intraarticular Procedure code (CPT) selection complete Assessment & Plan Assessment & Plan (1) Bilateral primary osteoarthritis of knee: Code(s): M17.0 - Bilateral primary osteoarthritis of knee Category: Medical Plan: Right knee was aspirated today and injected with steroid which the patient tolerated well. Left knee injected with steroid today and tolerated well. The patient was also given a prescription for Celebrex to take twice a day for 2 weeks to help with occasional flare-ups until the injections take full effect. I stressed the importance of physical therapy and conditioning type exercises to help take the load off the knees with activities. He will remain out of work until 01/25/2025 at which point he can return without restrictions. If symptoms persist or worsen he can contact our office otherwise follow up as needed. Coding Level of Care Code Est Pt Level 3 (15965) Complex EM visit Add On G2211 Diagnoses Bilateral primary osteoarthritis of knee M17.0 CPT Codes Coding - Joint 7: 30007 - Glenohumeral/Tronchanteric Bursa/Intraarticular ([id number])
--- OUTSIDE RECORDS SUMMARY | 2025-01-19 13:06 | XMS_ITS | Clinical Summary ---
Author Organization [facility] ity Address [address] [place] [address] Care Team Providers Care Signal And Communications Maintainer Name Role Phone Unavailable Primary Care Provider [...]
== END 2025-01-19 12:28 | disposition home or self-care (01) ==
LOC: HO.HOS 10:48
PROVIDERS: PCP Internal Medicine; Visit Provider Physician Assistant
DX: M17.0 Bilateral primary osteoarthritis of knee (principal)
CPT/HCPCS: 20610; 99213

== ENCOUNTER → 2025-01-19 10:48 | Outpatient (BNVA) | payer OTHER, SELFPAY | PROVIDERS: PCP Internal Medicine; Visit Provider Physician Assistant | DX: M17.0 Bilateral primary osteoarthritis of knee (principal) | CPT/HCPCS: 20610; J1010; J2003 ==

== ENCOUNTER 2025-03-09 15:06 | Outpatient (AMB) | payer OTHER, SELFPAY ==
--- NOTE | 2025-03-09 15:12 | MHC.PC.OV ---
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 Initially, the knee pain began impacting his ability to perform at work, leading him to engage in aquatic therapy, which has been somewhat beneficial. Despite this therapy, he continues to experience considerable pain and has not returned to work due to his condition. His job requires substantial physical activity, which his current state does not allow him to perform comfortably. Complimenting the physical discomfort, the patient experiences recurring morning headaches that disturb his sleep, potentially linked to suspected sleep apnea. Temporary relief is found with NSAIDs and mentholated topical applications. This has prompted discussions around a sleep study to investigate further. He has [place] score Scale of 12. He severely dozed off while watching TV, sitting and reading, being inactive in a public place and lying down in the afternoon. The patient has implemented behavioral modifications, such as abstaining from alcohol and tobacco, to enhance his overall health condition. His hypertension remains under control with medication, and he is actively pursuing weight loss. Upcoming appointments with orthopedic specialists are part of the plan to address his knee pain thoroughly. He is morbidly obese and was advised to do diet and exercise to reach BMI goal less than 30. [facility] Surgical History History of surgery Family History Mother Glaucoma Gout Father Diabetes Social History Housing: Apartment Alcohol intake: current Alcohol intake frequency: a few times a month Alcohol type: hard liquor Patient Tobacco Use Status: Current someday Tobacco user Tobacco use type: Cigar e-Cigarette/Vaping Use: Never Used Second Hand Smoke Exposure: No service: No Current occupational status: employed Current occupational exposures/hazards: No Cognitive needs: No Hearing needs: No Vision needs: No Questionnaire Thrive Questionnaire Date Thrive assessed: 12/11/24 VALERIE-7 AMB Questionnaire VALERIE-7 Date VALERIE - 7 assessed: 12/16/24 Source: Developed by Drs. Gregorio Barrett, Viviana Montejo, Mohit Sharpe and colleagues, with an educational shira from [email or web address]. Review of Systems Const All systems reviewed & are unremarkable except as noted in HPI and below Card Denies chest pain at rest, Denies chest pain with activity, Denies edema, Denies irregular heart rhythm, Denies claudication, Denies dyspnea, Denies dyspnea on exertion, Denies orthopnea, Denies paroxysmal nocturnal dyspnea and Denies slow heart rate Resp Denies cough, Denies dyspnea and Denies dyspnea on exertion GI Denies abdominal pain, Denies change in bowel habits, Denies excessive flatus, Denies nausea and Denies vomiting Physical exam (Primary Care) Vital Signs: Last Vital Signs BP 138/86 03/09/25 15:14 BMI result Body Mass Index 43.3 Tobacco/Smoking Status: Tobacco use Status Tobacco use date assessed 12/16/24 03/09/25 15:14 Patient Tobacco Use Status Current someday Tobacco 03/09/25 15:14 Tobacco use type Cigar 03/09/25 15:14 e-Cigarette/Vaping Use Never Used 03/09/25 15:14 Thrive Assessment: Date of Thrive Assessment Date Thrive assessed 12/11/24 03/09/25 15:14 Resp Effort & Inspection: normal respiratory effort Auscultation: clear to auscultation bilaterally Cardio Jugular venous distension: no JVD Rate: regular rate Rhythm: regular rhythm Heart sounds: S1 normal heart sound present and S2 normal heart sound present Extrem General: Yes full ROM Coding Level of Care Code Est Pt Level 4 (77019) Complex EM visit Add On G2211 Diagnoses Daytime somnolence R40.0 Bilateral primary osteoarthritis of knee M17.0 Essential hypertension I10 Morbid obesity E66.01 Time Spent (min) 23 Assessment & Plan Assessment & Plan (1) Daytime somnolence: Code(s): R40.0 - Somnolence Category: Medical (2) Bilateral primary osteoarthritis of knee: Code(s): M17.0 - Bilateral primary osteoarthritis of knee Category: Medical (3) Essential hypertension: Code(s): I10 - Essential (primary) hypertension Category: Medical (4) Morbid obesity: Code(s): E66.01 - Morbid (severe) obesity due to excess calories Category: Medical Plan The focus of this visit includes the evaluation and management of knee osteoarthritis, recurring headaches, and potential obstructive sleep apnea, stressing the need for a sleep study to confirm the latter. Sleep quality improvement is anticipated by confirming suspected sleep apnea and potentially employing CPAP therapy. In managing hypertension, continued use of Losartan and current lifestyle modifications support the patient's condition. Allergenic considerations necessitate avoiding predisone and Horamine. Occupational adjustments are necessary due to physical limitations imposed by knee osteoarthritis, while upcoming orthopedic consultation aims to refine management strategies. The patient is advised to maintain his newfound abstinence from alcohol and smoking to achieve better health outcomes. Patient was informed and verbally consented to the use of an ambient scribe for clinic note documentation during this visit. I discussed with the patient the likely etiologies of his problems, including the probable role of obstructive sleep apnea in his morning headaches, which will be further evaluated with a sleep study. We acknowledged the challenge of managing his chronic knee pain due to osteoarthritis, emphasizing the significance of continuing aquatic therapy and the planned orthopedic consult. I advised that the patient's current occupational duties are unsuitable due to the physical toll they take, justifying the extension of his work leave. We also reviewed the benefits of lifestyle changes, including cessation of smoking and alcohol to improve overall health and facilitate weight loss, which could positively influence his hypertension and osteoarthritis. The management plan for hypertension remains effective with Losartan, and we documented the need to avoid prednisone and Horamine due to allergies. I provided an explanation for the necessity of these changes and ensured the patient understood and agreed with the proposed management approach. Orders: Orders RT home sleep study Today R40.0 - Somnolence Patient Instructions: - Continue aquatic knee therapy to manage osteoarthritis pain. - Avoid work duties requiring significant physical exertion. - Schedule and complete a sleep study for obstructive sleep apnea evaluation. - Maintain current medication regimen for hypertension. - Continue avoiding alcohol and tobacco to support weight management. - Monitor and manage allergies, avoiding prednisone and Horamine. - Follow up with orthopedics as scheduled for further evaluation of knee pain. - Seek care sooner if headaches worsen or other new symptoms develop.
[2025-03-09 15:14] VITALS: BP 138/86; BMI 43.3
== END 2025-03-09 15:39 | disposition home or self-care (01) ==
LOC: HO.HMCH 15:06
PROVIDERS: PCP Internal Medicine; Visit Provider Internal Medicine
DX: R40.0 Somnolence (principal); E66.01 Morbid (severe) obesity due to excess calories; Z68.41 Body mass index [BMI] 40.0-44.9, adult; M17.0 Bilateral primary osteoarthritis of knee; I10 Essential (primary) hypertension

== ENCOUNTER → 2025-03-09 15:06 | Outpatient (BNVA) | payer OTHER, SELFPAY | PROVIDERS: PCP Internal Medicine; Visit Provider Internal Medicine | DX: Z13.89 Encounter for screening for other disorder (principal) ==

== ENCOUNTER 2025-04-02 13:39 | Outpatient (AMB) | payer OTHER, SELFPAY ==
--- OUTSIDE RECORDS SUMMARY | 2025-04-02 13:45 | XMS_ITS | Clinical Summary ---
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
--- NOTE | 2025-04-02 13:48 | MHC.OFFVIS ---
Vital Signs 04/02/25 14:01 Height 5 ft 9 in Weight 293 lb BMI 43.3 Intake Visit Reasons: OV- Bilateral knee pain, last inj 01/19/25 Intake Note: Giorgio is a 44 year old male who presents to the office today for Bilateral knee pain. At patient last visit on 01/19/25 he was given bilateral knee injections and a prescription for Celebrex to help with pain. Patient reports injection helped, however he has been experiencing popping in both of his knees with ambulation. He has been attending PT and was suggested to follow up in office. He has sharp pain at the anterior aspect of knees, as well as locking in his knees. Allergies prednisone Adverse Reaction (Verified 04/02/25 14:01) blurry vision, jitters Medication List - Last Reconciled 04/02/25 by Lady Ch PA-C [Anti-pronation orthotics Anti-pronation orthotics] HPI HPI OV- Bilateral knee pain, last inj 01/19/25: Details: 44-year-old gentleman presents to the office today for bilateral knee pain. He has been working with physical therapy and continues to have discomfort in the anterior portion of both knees with activities such as bending or climbing stairs. Previous injections were somewhat helpful. [facility] Surgical History History of surgery Family History Mother Glaucoma Gout Father Diabetes Social History Housing: Apartment Alcohol intake: current Alcohol intake frequency: a few times a month Alcohol type: hard liquor Patient Tobacco Use Status: Current someday Tobacco user Tobacco use type: Cigar e-Cigarette/Vaping Use: Never Used Second Hand Smoke Exposure: No service: No Current occupational status: employed Current occupational exposures/hazards: No Cognitive needs: No Hearing needs: No Vision needs: No Review of Systems Const All systems reviewed & are unremarkable except as noted in HPI and below Physical Exam Vital Signs: BMI result Body Mass Index 43.3 Const General: cooperative, healthy appearing, comfortable, no acute distress, well developed and alert Orientation/consciousness: patient oriented x3 HEENT Head: Yes normal to inspection, Yes normocephalic and Yes atraumatic Eyes General: appearance normal, both eyes and all related structures Resp Effort & Inspection: normal respiratory effort and able to speak in complete sentences Cardio Rate: regular rate Peripheral pulses: Peripheral pulses 2+ throughout GI Palpation (GI): Soft to palpation Skin Lesions: no lesions Rashes: no rashes Neuro General: patient oriented x3 Extrem Other: Bilateral knee: Skin intact, no erythema or joint effusion. Tenderness along the medial and lateral joint line. Full ROM with crepitus. Negative Darryl?s. No ligamentous laxity. NVI. Assessment & Plan Assessment & Plan (1) Bilateral primary osteoarthritis of knee: Code(s): M17.0 - Bilateral primary osteoarthritis of knee Category: Medical Plan: We discussed options today which include repeat injection which she is not interested in at this time. He will continue with physical therapy and also aqua therapy. He was given a prescription for Celebrex to take twice a day. If symptoms persist or there is any concerns going forward, he will contact our office otherwise he will follow up as needed. Orders: Orders XR knee RT 2V 04/02/25 M25.569 - Pain in unspecified knee XR knee LT 2V 04/02/25 M25.562 - Pain in left knee Medications: New celecoxib (Celebrex) 200 mg PO BID 30 days 60 caps 3RF Coding Level of Care Code Est Pt Level 3 (60600) Complex EM visit Add On G2211 Diagnoses Bilateral primary osteoarthritis of knee M17.0
[2025-04-02 14:01] VITALS: BMI 43.3
== END 2025-04-02 14:52 | disposition home or self-care (01) ==
LOC: HO.HOS 13:39
PROVIDERS: PCP Internal Medicine; Visit Provider Physician Assistant
DX: M17.0 Bilateral primary osteoarthritis of knee (principal)
CPT/HCPCS: 99213

== ENCOUNTER 2025-04-02 13:39 | Outpatient (REF) | payer OTHER, SELFPAY ==
--- NOTE | ~2025-04-02 | XR_ITS ---
EXAMINATION: XR KNEE, RIGHT CLINICAL INFORMATION: M25.569 - Pain in unspecified knee COMPARISON: 12/30/2024. TECHNIQUE: AP view bilateral knees standing, patellofemoral views bilateral knees. FINDINGS: RIGHT KNEE: No fracture, dislocation, or focal bony abnormality. Normal alignment. Mild tricompartmental joint space narrowing. Normal patellar alignment. No soft tissue abnormality. LEFT KNEE: No fracture, dislocation, or focal bony abnormality. Normal alignment. Moderate medial compartment and mild lateral and patellofemoral compartment joint space narrowing. Normal patellar alignment. No soft tissue abnormality. XR/XR knee RT 2V IMPRESSION: RIGHT KNEE: 1. Mild tricompartmental osteoarthritis, most significant medial compartment. LEFT KNEE 1. Moderate medial compartment osteoarthritis. 2. Mild medial and patellofemoral compartment osteoarthritis. Electronically signed by: Dwayne Diaz MD 04/02/2025 03:00 PM EDT
--- NOTE | ~2025-04-02 | XR_ITS ---
EXAMINATION: XR KNEE, RIGHT CLINICAL INFORMATION: M25.569 - Pain in unspecified knee COMPARISON: 12/30/2024. TECHNIQUE: AP view bilateral knees standing, patellofemoral views bilateral knees. FINDINGS: RIGHT KNEE: No fracture, dislocation, or focal bony abnormality. Normal alignment. Mild tricompartmental joint space narrowing. Normal patellar alignment. No soft tissue abnormality. LEFT KNEE: No fracture, dislocation, or focal bony abnormality. Normal alignment. Moderate medial compartment and mild lateral and patellofemoral compartment joint space narrowing. Normal patellar alignment. No soft tissue abnormality. XR/XR knee LT 2V IMPRESSION: RIGHT KNEE: 1. Mild tricompartmental osteoarthritis, most significant medial compartment. LEFT KNEE 1. Moderate medial compartment osteoarthritis. 2. Mild medial and patellofemoral compartment osteoarthritis. Electronically signed by: Dwayne Diaz MD 04/02/2025 03:00 PM EDT
== END 2025-04-02 13:40 | disposition home or self-care (01) ==
LOC: HO.HOSX 13:39
PROVIDERS: PCP Internal Medicine; Visit Provider Physician Assistant
DX: M25.561 Pain in right knee (principal); M25.562 Pain in left knee
CPT/HCPCS: 73560

== ENCOUNTER → 2025-04-02 14:13 | Outpatient (BNV) | payer OTHER, SELFPAY | PROVIDERS: PCP Internal Medicine; Visit Provider Radiology Diagnostic Radiology | DX: M17.11 Unilateral primary osteoarthritis, right knee (principal); M22.2X2 Patellofemoral disorders, left knee | CPT/HCPCS: 73560 ==

== ENCOUNTER → 2025-05-19 12:49 | Outpatient (REF) | payer OTHER, SELFPAY ==
--- OUTSIDE RECORDS SUMMARY | 2025-05-19 13:41 | XMS_ITS | Clinical Summary ---
[facility] [address] [place] [address] Care Team Providers Care Dope Pourer Name Role Phone Unavailable Primary Care Provider [...] (2023-2 5 season) 2024 Influenza Vaccine (#1) 2025 HIB Vaccines Aged Out No longer [...] 5 Years) and At-Risk Patients (6 to 49 Years) Aged Out No longer eligible b ased on patient's age to complete this topic RSV Immunization Patients Un yves 20 months Aged Out No longer eligible b ased on patient's age to complete this topic Varicella Vaccines Aged Out No longer eligible based on patient's age to complete this topic
== END ==
LOC: HO.SL 12:49
PROVIDERS: PCP Internal Medicine; Visit Provider Internal Medicine
DX: G47.33 Obstructive sleep apnea (adult) (pediatric) (principal); R40.0 Somnolence
CPT/HCPCS: 95806

== ENCOUNTER → 2025-05-19 12:58 | Outpatient (BNV) | payer OTHER, SELFPAY | PROVIDERS: PCP Internal Medicine; Visit Provider Internal Medicine | DX: G47.33 Obstructive sleep apnea (adult) (pediatric) (principal) | CPT/HCPCS: 95806 ==

== ENCOUNTER 2025-05-21 14:05 | Outpatient (AMB) | payer OTHER, SELFPAY ==
--- OUTSIDE RECORDS SUMMARY | 2025-05-21 14:10 | XMS_ITS | Clinical Summary ---
[facility] [address] [place] [address] Care Team Providers Care Field Education Director Name Role Phone Unavailable Primary Care Provider [...]
--- NOTE | 2025-05-21 14:11 | MHC.OFFVIS ---
Vital Signs 05/21/25 14:20 Height 5 ft 9 in Weight 283 lb BMI 41.8 BP 142/85 H Blood Pressure Location Lt brachial Position Sitting Pulse 80 Pulse Oximetry (%) 98 Oxygen Delivery Method Room Air Intake Visit Reasons: [place] Screening Intake Note: Patient new consult for 2nd pre Colonoscopy screening. Patient denies any GI issues for today. 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 Referred by PCP for pre colonoscopy screening. Shares this will be his 2nd colonoscopy, 1st completed at age 24 at outside facility with questionable findings. He reports intermittent bowel irregularities throughout his adult life, characterized by alternating normal bowel movements and frequent, small, broken-down stools. He experiences occasional constipation with associated abdominal and rectal pain during defecation. The abdominal pain is localized to the middle of his belly. Giorgio also reports experiencing heartburn, particularly when consuming alcohol, though he no longer takes regular medication for it. He occasionally experiences regurgitation when lying down, but notes this has improved with dietary changes and increased exercise. He denies any trouble swallowing, changes in appetite, nausea, vomiting, or blood in stools. His weight has decreased from 290 pounds in December to 283 pounds currently, with a goal of reaching 200 pounds. He attributes this weight loss to diet changes and increased physical activity. Current diet consists of vegetables, proteins, fruits, rice, and water. Patient denies: fever/chills, n/v, unintentional wt loss or melena/hematochezia. Social hx: - Occasional alcohol use (whiskey, three or more drinks on weekends) - Cigar smoking when drinking - Diet includes broccoli, cauliflower, wraps with eggs and turkey ash, fruits, water, rice, steak, chicken, asparagus, spinach - Engages in gym activities - family hx as below -denies personal hx of CA -denies significant cardiopulmonary history -tolerated anesthesia in the past without difficulty. [facility] Medical History (Updated 05/21/25 @ 14:46 by Edelmira Butt CNP) Constipation Surgical History History of surgery Family History Mother Glaucoma Gout Father Diabetes Social History Housing: Apartment Alcohol intake: current Alcohol intake frequency: a few times a month Alcohol type: hard liquor Patient Tobacco Use Status: Current someday Tobacco user Tobacco use type: Cigar e-Cigarette/Vaping Use: Never Used Second Hand Smoke Exposure: No service: No Current occupational status: employed Current occupational exposures/hazards: No Cognitive needs: No Hearing needs: No Vision needs: No Review of Systems Const Reports as per HPI ENT Reports as per HPI Card Reports as per HPI Resp Reports as per HPI GI Reports as per HPI Reports as per HPI Physical Exam Vital Signs: Last Vital Signs Pulse 80 05/21/25 14:20 BP 142/85 H 05/21/25 14:20 Pulse Ox 98 05/21/25 14:20 Oxygen Delivery Method Room Air 05/21/25 14:20 BMI result Body Mass Index 41.8 Const General: healthy appearing, no acute distress and well developed Nutritional Appearance: well nourished Orientation/consciousness: patient oriented x3 HEENT Head: Yes normal to inspection, Yes normocephalic and Yes atraumatic Face and sinus: Yes normal facial exam Eyes General: appearance normal, both eyes and all related structures Neck Neck: Yes normal visual inspection Resp Effort & Inspection: normal respiratory effort, able to speak in complete sentences, no tracheal deviation and symmetric chest movement Auscultation: clear to auscultation bilaterally Cardio Jugular venous distension: no JVD Rate: regular rate Rhythm: regular rhythm Heart sounds: S1 normal heart sound present, S2 normal heart sound present, no gallops and no murmurs GI Inspection: Yes normal to inspection, No distended, Yes obesity and Yes striae Palpation (GI): Soft to palpation, not firm, nontender and No hepatosplenomegaly present Auscultation: Hypoactive bowel sounds present Neuro General: patient oriented x3 Gait exam (Neuro): Normal gait present Psych Appearance: grossly normal Mental Status: mental status grossly normal Speech and movement: Normal speech and movement present Affect: normal affect Attitude: cooperative Thought process: Normal thought process present Thought content: Normal thought content present Insight: Good insight present (Psych) Judgement: Good judgement present (Psych) Assessment & Plan Assessment & Plan (1) Screen for colon cancer: Code(s): Z12.11 - Encounter for screening for malignant neoplasm of colon Category: Medical Plan: First colonoscopy at age 24, records are not available. Medications: -prescriptions for laxative tablets and MiraLax sent to pharmacy; instructions for Gatorade purchase and clear liquid diet given. Patient educated on scheduling process, procedure preparation, including avoiding certain foods and ensuring clear liquid intake Advised on necessity for ride post-procedure due to sedation. (2) Constipation: Code(s): K59.00 - Constipation, unspecified Category: Medical Qualifiers: Constipation type: unspecified constipation type Qualified Code(s): K59.00 - Constipation, unspecified Plan: Chronic, mild with incomplete evacuation DDx: Irritable Bowel Syndrome (IBS), Chronic Constipation, Intestinal Motility Disorder - Prescribe docusate sodium for symptom management. - Maintain adequate hydration for stool regularity. - understands to report no change or worsening symptoms to ensure adequate prep (3) Chronic GERD: Code(s): K21.9 - Gastro-esophageal reflux disease without esophagitis Category: Medical Plan: Occasional heartburn particularly with alcohol consumption, improved with dietary changes and weight loss. DDx: Functional Dyspepsia, Hiatal Hernia, Non-Erosive Reflux Disease - Continue as-needed [id number] antacids - Maintain weight loss efforts and beneficial dietary changes. Plan Follow-up after colonoscopy or sooner as needed Time: I spent a total of 35 minutes on the date of encounter which includes: Preparing to see the patient (reviewed previous documentation, test results and medical history) Performing a medically appropriate exam and/or evaluation Ordering medications, tests, and procedures Documenting clinical information in the health record Medications: New bisacodyl Take four tablets once for 1 day per colonoscopy instructions 5 mg PO ONCE 4 tabs 0RF 1 day docusate calcium Take one tablet at bedtime 240 mg PO BEDTIME 90 caps 3RF polyethylene glycol 3350 (Miralax) per colonoscopy prep instructions 238 grams PO ONCE 238 grams 0RF Coding Level of Care Code New Pt New Pt Level 3 (97078) Patient Type New Diagnoses Screen for colon cancer Z12.11 Constipation, unspecified constipation type K59.00 Constipation type: unspecified constipation type Chronic GERD K21.9
[2025-05-21 14:20] VITALS: BP 142/85; PULSE 80; O2SAT 98; BMI 41.8
== END 2025-05-21 14:52 | disposition home or self-care (01) ==
LOC: HO.HGI 14:06
PROVIDERS: PCP Internal Medicine; Visit Provider Nurse Practitioner Family
DX: Z01.818 Encounter for other preprocedural examination (principal); Z12.11 Encounter for screening for malignant neoplasm of colon; K59.00 Constipation, unspecified; K21.9 Gastro-esophageal reflux disease without esophagitis
CPT/HCPCS: 99203

== ENCOUNTER 2025-06-02 14:00 | Outpatient (RCR) | payer OTHER, SELFPAY ==
--- NOTE | 2025-01-20 14:59 | MHC.PT.EP ---
[facility] [place] Office [place] Office [place] Office [address] Génesis Charlton [address] [phone] F: [phone] F: [phone] F: [phone] F: [phone] Physical Therapy Plan of Care Date of Evaluation: 01/20/25 Date of Surgery: NA Diagnosis: B KNEE PAIN Assessment: Pt IS 44 YO M REFERRED TO PT FROM DR GIBBONS WITH B KNEE PAIN. HAD L KNEE ASPIRATION AND B CORTISONE INJECTIONS YESTERDAY AT ORTHO. PRESENTS WITH DECREASED KNEE ROM AND DECREASED LE STRENGTH. Pt WITH ANTALGIC GT, AND PAIN AFFECTING ADLS. HAS HAD PT IN PAST WITH GOOD RESULTS. SHOULD BENEFIT AGAIN Frequency and Duration: The patient will be seen 1X/WK X 6 WKS Short Term Goals: 1. INCREASED AWARENESS KNEE CARE 2. INCREASED KNEE ROM 0-120 B 3. IMPROVED GT PATTERN Academic Services Coordinator Goals: 1. I HEP WITH DC EX PLAN 2. DECREASED KNEE PAIN AT LEAST 50% WITH ADLS 3. RTW Treatment Plan: Modalities to reduce pain, spasms and effusion. Manual therapy to restore motion and function. Therapeutic exercise to improve strength and flexibility. Neuromuscular re-education for posture and balance. Therapeutic activities to return to functional activities of daily living. Electronically signed by: LASHAY MILES PT Please sign and return to therapist. Thank you for your referral.
--- NOTE | 2025-06-04 14:53 | MHC.PT.DC ---
[facility] [place] [facility] [place] [facility] [place] [facility] [address] [phone] F: [phone] F: [phone] F: [phone] F: [phone] Physical Therapy Discharge Report Diagnosis: B KNEE PAIN Date of Surgery: NA Date of Evaluation: 01/20/25 Date of Discharge: 06/04/25 Treatments to Date: 11 Cancellations to Date: No Shows to Date: Discharge Status: Independent with HEP Recommend MD Follow-up Discharge Summary: PER ASSESSMENT FROM LAST PT SESSION PER Hakeem Alvares reviewed HEP today but will con't to do GYM routine swimming in pool. OF NOTE, PRIOR TO THIS LAST PT SESSION, Pt HAD NOT BEEN TO PT X 1 MONTH Electronically signed by: LASHAY MILES PT Please sign and return to therapist. Thank you for your referral.
== END 2025-06-04 14:53 | disposition home or self-care (01) ==
LOC: HO.PT 14:00
PROVIDERS: PCP Internal Medicine; Visit Provider Internal Medicine
DX: M25.561 Pain in right knee (principal); M25.562 Pain in left knee
CPT/HCPCS: 97110; 97140; 97162; 97530; 97535

== ENCOUNTER 2025-06-16 15:07 | Outpatient (AMB) | payer OTHER, SELFPAY ==
--- NOTE | 2025-06-16 15:12 | A.OFFPC_ITS ---
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 The patient reports a history of hypertension, which has been well-controlled without medication for the past two and a half months. He mentions that his bl ood pressure readings have been satisfactory, and he feels confident in managing his condition through lifestyle modifications. I recheck blood pressure with a cough that fit him and he was 130/80. 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 He notes that the pain affects his ability to walk and requires him to take breaks to alleviate the discomfort. The patient has been attending physical therapy sessions, which he finds beneficial, and plans to continue with these sessions to manage his knee pain. He has impaired glucose tolerance but denies any polyuria, polydipsia or unintentional weight loss. [facility] Medical History Constipation Surgical History History of surgery Family History Mother Glaucoma Gout Father Diabetes Social History Housing: Apartment Alcohol intake: current Alcohol intake frequency: a few times a month Alcohol type: hard liquor Patient Tobacco Use Status: Current someday Tobacco user Tobacco use type: Cigar e-Cigarette/Vaping Use: Never Used Second Hand Smoke Exposure: No service: No Current occupational status: employed Current occupational exposures/hazards: No Cognitive needs: No Hearing needs: No Vision needs: No Questionnaire Thrive Questionnaire Date Thrive assessed: 12/11/24 I am a: Patient What is your living situation today?: I have a steady place to live Within the past 12 months, did the food you bought not last and you didn't have the money to get more?: Sometimes True Within the past 12 months, did you worry whether your food would run out before you got money to buy more?: Sometimes True Do you have trouble paying for medicines?: No Do you have trouble getting transportation to medical appointments?: Yes Do you have trouble paying your heating and electricity bill?: No Do you have trouble taking care of your child, family member or friend?: No Do you have trouble with day-to-day activities such as bathing, preparing meals, shopping, managing finances, etc.?: No Are you currently unemployed and looking for a job?: No Are you interested in more education?: No Please select the resources that you would like help with: None THRIVE Score: 3 VALERIE-7 AMB Questionnaire VALERIE-7 Date VALERIE - 7 assessed: 12/16/24 Source: Developed by Drs. Gregorio Barrett, Viviana Montejo, Mohit Sharpe and colleagues, with an educational shira from [employer]. Review of Systems Const All systems reviewed & are unremarkable except as noted in HPI and below Card Denies chest pain at rest, Denies chest pain with activity, Denies edema, Denies irregular heart rhythm, Denies claudication, Denies dyspnea, Denies dyspnea on exertion, Denies orthopnea, Denies paroxysmal nocturnal dyspnea and Denies slow heart rate Resp Denies cough, Denies dyspnea and Denies dyspnea on exertion GI Denies abdominal pain, Denies change in bowel habits, Denies excessive flatus, Denies nausea and Denies vomiting Denies urinary hesitancy, Denies urinary incontinence and Denies urinary urgency Musc Denies abnormal gait, Denies atrophy, Denies deformity and Denies limited range of motion Skin/Breast Denies bleeding lesions, Denies changing lesions and Denies rash Neuro Denies abnormal gait and Denies lack of coordination Physical exam (Primary Care) Vital Signs: Last Vital Signs BP 170/110 H 06/16/25 15:14 BMI result Body Mass Index 43.7 BMI Assessment/Plan discussion: High BMI High, discussed plan: lifestyle, weight reduction, dietary and physical activity Tobacco/Smoking Status: Tobacco use Status Tobacco use date assessed 12/16/24 06/16/25 15:16 Patient Tobacco Use Status Current someday Tobacco 06/16/25 15:16 Tobacco use type Cigar 06/16/25 15:16 e-Cigarette/Vaping Use Never Used 06/16/25 15:16 Thrive Assessment: Date of Thrive Assessment Date Thrive assessed 12/11/24 06/16/25 15:16 Resp Effort & Inspection: normal respiratory effort Auscultation: clear to auscultation bilaterally Cardio Jugular venous distension: no JVD Rate: regular rate Rhythm: regular rhythm Heart sounds: S1 normal heart sound present and S2 normal heart sound present Extrem General: Yes full ROM Coding Level of Care Code Est Pt Level 4 (52557) Complex EM visit Add On G2211 Diagnoses Essential hypertension I10 Morbid obesity E66.01 Mild major depression F32.0 Impaired glucose tolerance R73.02 Bilateral primary osteoarthritis of knee M17.0 Time Spent (min) 25 Assessment & Plan Assessment & Plan (1) Essential hypertension: Code(s): I10 - Essential (primary) hypertension Category: Medical (2) Morbid obesity: Code(s): E66.01 - Morbid (severe) obesity due to excess calories Category: Medical (3) Mild major depression: Code(s): F32.0 - Major depressive disorder, single episode, mild Category: Medical (4) Impaired glucose tolerance: Code(s): R73.02 - Impaired glucose tolerance (oral) Category: Medical (5) Bilateral primary osteoarthritis of knee: Code(s): M17.0 - Bilateral primary osteoarthritis of knee Category: Medical Plan The patient will continue with lifestyle modifications to manage his hyperten fernando, as his blood pressure readings have been satisfactory without medication. He is advised to maintain regular physical activity and monitor his blood pressure regularly. For his knee pain, the patient will continue attending physical therapy sessions, which have been beneficial in managing his symptoms. He is encouraged to continue with the gym classes that have been helping him. A follow-up appointment is recommended to reassess his condition and adjust the treatment plan as necessary. Patient was informed and verbally consented to the use of an ambient scribe for clinic note documentation during this visit. Orders: Orders PT Evaluation and Treatment Today M17.0 - Bilateral primary osteoarthritis of knee Comprehensive [place]. Panel Fast 4 Months M22.2X1 - Patellofemoral disorders, right knee, M22.2X2 - Patellofemoral disorders, left knee Lipid Panel 4 Months E78.5 - Hyperlipidemia, unspecified Vitamin D 25-OH Total 4 Months E55.9 - Vitamin D deficiency, unspecified IRON PROFILE 4 Months D64.9 - Anemia, unspecified Complete Blood Count Auto Diff 4 Months D64.9 - Anemia, unspecified
[2025-06-16 15:14] VITALS: BP 170/110; BMI 43.7
--- OUTSIDE RECORDS SUMMARY | 2025-06-16 15:38 | XMS_ITS | Clinical Summary ---
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
--- OUTSIDE RECORDS SUMMARY | 2025-06-16 15:38 | XMS_ITS | Clinical Summary ---
Author Organization [facility] Address [address] [phone] Phone Care Team Providers Care Human Resources Clerk Name Role Phone Pcp, Unknown Primary Care Provider Unavailabl e Social History Tobacco Use Types Packs/Day Years Used Date Smoking Tobacco: Never Assessed Sex and Gender Information Value Date Recorded Sex Assigned at Not on file Legal Sex Male 3:11 PM EDT Gender Identity Not on file Sexual Orientation Not on file Plan of Treatment Health Maintenance Due Date Last Done Comments Adult Td,Tdap Booster 1978 LIPID PANEL 1978 DEPRESSION SCREENING 1990 HEPATITIS C SCREENING 1996 HIV ONE-TIME SCREENING (18-6 5 YEARS) 1996 COVID-19 VACCINE (3 2023-2 5 season) 2024 07/07/2021, 06/16/2021 COLORECTAL CANCER SCREENING Completed HEPATITIS A VACCINES Aged Out No long er eligible based on patient's age to complete this topic HIB VACCINES Aged Out No longer eligi ble based on patient's age to complete this topic MENINGOCOCCAL VACCINES (ACWY) Aged Out No longer eligible based on patient's age to complete this topic MENINGOCOCCAL VACCINES (B) Aged Out N o longer eligible based on patient's age to complete this topic PNEUMOCOCCAL VACCINES (0-49 years) Aged Out No longer eligible b ased on patient's age to complete this topic Medical Devices Not on file Insurance HEALTH SAFETY NET FULL SAFETY NET FULL SAFETY [facility] FULL SAFETY NET FULL HEALTH SAFETY NET FULL SAFETY NET FULL SAFETY NET FULL HEALTH SAFETY NET FULL [facility] FULL Care Teams Human Resources Clerk Relationship Specialty Start Date End Date Pcp, Unknown PCP - General 09/05/22 Additional Source Comments The information contained in this document represents components of the legal health record. It is not the complete legal health record.[facility]
[2025-06-16 15:42] VITALS: BP 130/80
== END 2025-06-16 15:47 | disposition home or self-care (01) ==
LOC: HO.HMCH 15:07
PROVIDERS: PCP Internal Medicine; Visit Provider Internal Medicine
DX: I10 Essential (primary) hypertension (principal); E66.01 Morbid (severe) obesity due to excess calories; F32.0 Major depressive disorder, single episode, mild; R73.02 Impaired glucose tolerance (oral); M17.0 Bilateral primary osteoarthritis of knee; Z68.41 Body mass index [BMI] 40.0-44.9, adult

== ENCOUNTER 2025-10-19 16:23 | Outpatient (AMB) | payer OTHER, SELFPAY ==
[2025-10-19 16:46] VITALS: BP 160/98; PULSE 79; RESP 18; O2SAT 97; BMI 45.1
--- NOTE | 2025-10-19 16:46 | MHC.PC.OV ---
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: No Accompanied by: Self / Same As Patient Allergies prednisone Adverse Reaction (Verified 10/19/25 17:14) blurry vision, jitters Medication List - Last Reconciled 10/19/25 by Mona English MD [Anti-pronation orthotics Anti-pronation orthotics] bisacodyl 5 mg PO ONCE 1 day docusate calcium 240 mg PO BEDTIME polyethylene glycol 3350 (Miralax) 238 grams PO ONCE Tobacco use date assessed: 10/19/25 Dental Screening Dental Screen Date: 10/19/25 Did you have a dental visit in the last 12 months?: No Did you have a dental problem in the last 6 months where you did not have access to dental care?: No Was dental information given to patient?: No HPI HPI Comments History of Present Illness Details The patient is a 44-year-old male presenting with complaints of foot pain, fatigue, and erectile dysfunction. The patient reports a history of chronic knee problems. He is morbidly obese with a BMI of 45 and was advised to do diet and exercise to reach BMI goal less than 30. He endorses feeling very tired. He also complains of erectile dysfunction. The patient has a history of constipation, for which he has MiraLAX, though he denies current constipation. He has a known allergy to prednisone. [facility], [facility] Medical History Constipation Surgical History History of surgery Family History Mother Glaucoma Gout Father Diabetes Social History Housing: Apartment Alcohol intake: current Alcohol intake frequency: a few times a month Alcohol type: hard liquor Patient Tobacco Use Status: Current someday Tobacco user Tobacco use type: Cigar e-Cigarette/Vaping Use: Never Used Second Hand Smoke Exposure: No service: No Current occupational status: employed Current occupational exposures/hazards: No Cognitive needs: No Hearing needs: No Vision needs: No Questionnaire PHQ-9 Over the last 2 weeks, how often have you been bothered by any of the following problems? 1. Little interest or pleasure in doing things: not at all 2. Feeling down, depressed, or hopeless: not at all Source: Developed by Drs. Gregorio Barrett, Viviana Montejo, Mohit Sharpe and colleagues, with an educational shira from [employer]. Thrive Questionnaire Date Thrive assessed: 10/19/25 I am a: Patient What is your living situation today?: I have a steady place to live Within the past 12 months, did the food you bought not last and you didn't have the money to get more?: Sometimes True Within the past 12 months, did you worry whether your food would run out before you got money to buy more?: Sometimes True Do you have trouble paying for medicines?: No Do you have trouble getting transportation to medical appointments?: Yes Do you have trouble paying your heating and electricity bill?: No Do you have trouble taking care of your child, family member or friend?: No Do you have trouble with day-to-day activities such as bathing, preparing meals, shopping, managing finances, etc.?: No Are you currently unemployed and looking for a job?: No Are you interested in more education?: No Please select the resources that you would like help with: None THRIVE Score: 3 VALERIE-7 AMB Questionnaire VALERIE-7 Date VALERIE - 7 assessed: 12/16/24 Source: Developed by Drs. Gregorio Barrett, Viviana Montejo, Mohit Sharpe and colleagues, with an educational shira from [employer]. Review of Systems Const All systems reviewed & are unremarkable except as noted in HPI and below Card Denies chest pain at rest, Denies chest pain with activity, Denies edema, Denies irregular heart rhythm, Denies claudication, Denies dyspnea, Denies dyspnea on exertion, Denies orthopnea, Denies paroxysmal nocturnal dyspnea and Denies slow heart rate Resp Denies cough, Denies dyspnea and Denies dyspnea on exertion Physical exam (Primary Care) Vital Signs: Last Vital Signs Pulse 79 10/19/25 16:46 Resp 18 10/19/25 16:46 BP 160/98 H 10/19/25 16:46 Pulse Ox 97 10/19/25 16:46 Oxygen Delivery Method Room Air 10/19/25 16:46 BMI result Body Mass Index 45.1 BMI Assessment/Plan discussion: High BMI High, discussed plan: lifestyle, weight reduction, dietary and physical activity Tobacco/Smoking Status: Tobacco use Status Tobacco use date assessed 10/19/25 10/19/25 16:59 Patient Tobacco Use Status Current someday Tobacco 10/19/25 16:48 Tobacco use type Cigar 10/19/25 16:48 e-Cigarette/Vaping Use Never Used 10/19/25 16:48 Thrive Assessment: Date of Thrive Assessment Date Thrive assessed 10/19/25 10/19/25 16:59 Resp Effort & Inspection: normal respiratory effort Auscultation: clear to auscultation bilaterally Cardio Jugular venous distension: no JVD Rate: regular rate Rhythm: regular rhythm Heart sounds: S1 normal heart sound present and S2 normal heart sound present Extrem General: Yes full ROM Coding Level of Care Code Est Pt Level 4 (17967) Diagnoses Morbid obesity E66.01 Patellofemoral arthralgia of both knees M22.2X1; M22.2X2 Fatigue R53.83 Erectile dysfunction N52.9 Time Spent (min) 21 Assessment & Plan Assessment & Plan (1) Morbid obesity: Code(s): E66.01 - Morbid (severe) obesity due to excess calories Category: Medical (2) Patellofemoral arthralgia of both knees: Code(s): M22.2X1 - Patellofemoral disorders, right knee; M22.2X2 - Patellofemoral disorders, left knee Category: Medical (3) Fatigue: Code(s): R53.83 - Other fatigue Category: Medical (4) Erectile dysfunction: Code(s): N52.9 - Male erectile dysfunction, unspecified Category: Medical Plan Plan 1. Fatigue To investigate the cause of fatigue, laboratory tests will be ordered. The patient was advised to discontinue any supplements he may be using. 2. Morbid Obesity The patient is morbidly obese, and a goal to reach a BMI of less than 30 was discussed. 3. Erectile Dysfunction A testosterone level will be ordered to evaluate for erectile dysfunction, and a referral to urology will be placed. 4. Knee osteoarthritis Continue pain medication as needed. Orders: Orders Complete Blood Count Auto Diff Today D64.9 - Anemia, unspecified, R53.83 - Other fatigue Vitamin B12 and Folate Today E53.8 - Deficiency of other specified B group vitamins, R53.83 - Other fatigue Lipid Panel Today E78.5 - Hyperlipidemia, unspecified Comprehensive [place]. Panel Fast Today R53.83 - Other fatigue Vitamin D 25-OH Total Today E55.9 - Vitamin D deficiency, unspecified, R53.83 - Other fatigue Thyroid Stimulating Hormone Today E66.01 - Morbid (severe) obesity due to excess calories Testosterone, Free/Total Today N52.9 - Male erectile dysfunction, unspecified Referrals Urology Referral N52.9 - Male erectile dysfunction, unspecified
[2025-10-19 20:37] VITALS: BP 138/70
--- OUTSIDE RECORDS SUMMARY | 2025-10-19 22:58 | XMS_ITS | Clinical Summary ---
Author Organization [facility] Address [address] [phone] Phone Care Team Providers Care Staff Editor Name Role Phone Pcp, Unknown Primary Care [...] HIV ONE-TIME SCREENING (18-6 5 YEARS) 1996 INFLUENZA VACCINE (#1) 2025 COVID-19 VACCINE (3 - 2024-2 6 season) 2025 07/07/2021, 06/16/2021 COLORECTAL CANCER SCREENING Completed HEPATITIS [...] file Insurance HEALTH SAFETY NET FULL SAFETY [facility] FULL [place]ULL [place] [address] SAFETY NET FULL HEALTH SAFETY NET FULL SAFETY NET FULL SAFETY NET FULL [facility] NET FULL Care Teams Staff Editor Relationship Specialty Start Date End Date Pcp, Unknown PCP - General 09/05/22 Additional Source Comments The information contained in this document represents components of the legal health record. It is not the complete legal health record.[facility]
--- OUTSIDE RECORDS SUMMARY | 2025-10-19 22:58 | XMS_ITS | Clinical Summary ---
Author Organization [facility] ity Address [address] [place] [address] Care Team Providers Care Antique Clocks Repairer Name Role Phone Unavailable Primary Care [...] of 3 - 19+ 3-dose series) 1997 Depression Screening 11/11/2024 COVID-19 Vaccine (1 - 2024-2 6 season) 2025 Influenza Vaccine (#1) 2025 RSV Immunization Adult Patie nts (1 - 1-dose 75+ series) 2053 HIB Vaccines Aged Out No longer eligi [...]
== END 2025-10-19 17:27 | disposition home or self-care (01) ==
LOC: HO.HMCH 16:23
PROVIDERS: PCP Internal Medicine; Visit Provider Internal Medicine
DX: M22.2X1 Patellofemoral disorders, right knee (principal); E66.01 Morbid (severe) obesity due to excess calories; Z68.42 Body mass index [BMI] 45.0-49.9, adult; M22.2X2 Patellofemoral disorders, left knee; R53.83 Other fatigue; N52.9 Male erectile dysfunction, unspecified